=== PATIENT | male | born 1965 | race Caucasian/White ===

== ENCOUNTER 2022-09-28 07:55 | Outpatient (REF) | payer OTHER, SELFPAY ==
--- NOTE | ~2022-09-28 | US_ITS ---
EXAMINATION: US COMPLETE ABDOMEN WITH LIVER ELASTOGRAPHY CLINICAL INFORMATION: Fatty liver. COMPARISON: None available. TECHNIQUE: Real-time imaging of the abdominal viscera. Noninvasive ultrasound liver fibrosis assessment is performed using Morris ElastPQ point quantification shear wave elastography (2D-SWE) with a C5-2 MHz transducer. Multiple elastography samples are obtained. FINDINGS: PANCREAS: Normal. The visualized pancreatic head and body are normal in appearance. The remainder of the pancreas is obscured from visualization by the overlying bowel gas. ABDOMINAL AORTA: The proximal segment is largely obscured by overlapping bowel gas. The middle, and distal aortic segments are normal in caliber. INFERIOR VENA CAVA: Visualized portions are normal. LIVER: The liver demonstrates normal size, contour and generally increased echogenicity. No focal lesion or intrahepatic biliary duct dilatation. The right lobe measures 16.7 cm in length. The left lobe measures 13.2 cm in length. Portal flow is towards the liver (hepatopetal). Shear wave liver elastography median stiffness is 2.03 m/s (reference: normal median stiffness is 1.3 m/s or less). IQR/median stiffness to assess sampling precision is 0.05 (reference: good quality data set is IQR/median stiffness of 0.15 or less). GALLBLADDER: Normal. The gallbladder is physiologically distended without evidence of stones, sludge, polyps, wall thickening or pericholecystic fluid. COMMON BILE DUCT: Normal in caliber measuring 0.5 cm in diameter. RIGHT KIDNEY: At the upper pole, a 3.9 x 2.6 x 2.6 cm mildly complex cyst is seen, with fine, partial septations. This shows no mural nodularity or associated color Doppler flow. At the lower pole, a 1.5 cm maximal diameter benign, simple cyst is seen, for which no imaging follow-up is recommended. No hydronephrosis. No renal calculi or focal parenchymal lesions. The kidney measures 12.0 cm in maximum dimension. LEFT KIDNEY: At the upper pole, a 1.9 cm in diameter benign, simple cyst is seen. The interpolar aspect, a 2.9 cm maximal diameter benign, simple cyst is seen. There are persistent lobulations. No hydronephrosis. The upper pole, a 5 mm nonobstructing calculus is seen, with twinkle artifact. There are no solid parenchymal lesions. The kidney measures 9.7 cm in maximum dimension. SPLEEN: Normal. The spleen measures 12.4 cm in maximum dimension. FREE FLUID: None. US/US abdomen comp w elastography IMPRESSION: 1. There is generalized increase in hepatic echotexture, consistent with fatty infiltration or hepatocellular disease. Please correlate clinically. No focal hepatic mass or intrahepatic biliary dilatation is seen. 2. Liver elastography: Measurements are suggestive of compensated advanced chronic liver disease but need further test for confirmation. 3. There is a 5 mm nonobstructing left renal calculus. No right renal calculus is seen. No hydronephrosis is noted bilaterally. 4. A 3.9 cm mildly complex right renal upper pole cyst is seen, and there are further benign, simple bilateral renal cysts. If relevant to patient management, the mildly complex cyst could be more fully evaluated with contrast enhanced CT or MRI (renal mass protocol). REFERENCE: Society of Radiologists in Ultrasound Liver Stiffness Thresholds (2020): LIVER STIFFNESS THRESHOLDS: *Liver Stiffness equal or less than 1.3 m/s: High probability of being normal. *Liver Stiffness less than 1.7 m/s: In the absence of other known clinical signs, rules out compensated advanced chronic liver disease. *Liver Stiffness 1.7-2.1 m/s: Suggestive of compensated advanced chronic liver disease but need further test for confirmation. *Liver Stiffness over 2.1 m/s: Rules in compensated advanced chronic liver disease. *Liver Stiffness over 2.4 m/s: Suggestive of clinically significant portal hypertension. QUALITY OF DATA SET: *IQR/Median value equal or less than 0.15 implies a quality data set. *IQR/Median value over 0.15 implies a poor quality data set. SIGNIFICANT CHANGE FROM PRIOR EXAM: Significant change if liver stiffness measurement is 10% or greater from prior exam. OTHER CONSIDERATIONS: The stage of liver fibrosis may be overestimated in the setting of acute hepatitis, liver inflammation, elevated liver function tests, hepatic vascular congestion, obstructive cholestasis, non-fasting state, and infiltrative diseases such as amyloidosis and lymphoma. In some patients with NAFLD, the liver stiffness thresholds for compensated advanced chronic liver disease may be lower. In causes other than viral hepatitis and NAFLD, liver stiffness thresholds are not well established.
[2022-09-28 08:07] LABS: MANUAL DIFF FLAG NO
[2022-09-28 08:25] LABS: Basophils Absolute Auto 0.1 X10*3/uL (0.0-0.2); Basophils Percent Auto 1.2 % (0-2); Eosinophils Absolute Auto 0.2 X10*3/uL (0.0-0.4); Eosinophils Percent Auto 3.5 % (0-4); Hematocrit 46.1 % (42.0-52.0); Hemoglobin 15.6 g/dl (14.0-18.0); Imm Gran Abs Auto 0.01 X10*3/uL (0.00-0.03); Imm Gran Pct Auto 0.2 % (0.0-0.4); Lymphocytes Absolute Auto 0.9 X10*3/uL (1.2-4.9); Lymphocytes Percent Auto 16.3 % (20-40); Mean Corpuscular HGB Conc 33.8 g/dl (31.0-36.0); Mean Corpuscular Hemoglobin 32.2 pg (27.0-33.0); Mean Corpuscular Volume 95.1 fL (80.0-98.0); Mean Platelet Volume 8.8 fL (9.4-12.4); Monocytes Absolute Auto 0.5 X10*3/uL (0.1-1.2); Monocytes Percent Auto 8.8 % (2-11); Platelet Count 197 X10*3/uL (160-400); Red Blood Count 4.85 X10*6/uL (4.60-5.80); Red Cell Distribution Width 12.6 % (11.0-16.0); White Blood Count 5.7 X10*3/uL (4.8-10.8)
[2022-09-28 08:33] LABS: Prothrombin Time 11.4 SEC (10.0-13.1)
[2022-09-28 08:58] LABS: Alanine Aminotransferase 40 U/L (0-40); Alkaline Phosphatase 96 U/L (39-117); Aspartate Amino Transferase 40 U/L (5-37); Bilirubin Direct 0.3 mg/dL (0.0-0.5); Bilirubin Total 1.1 mg/dL (0.0-1.0); Total Protein 7.4 g/dL (6.5-8.0)
[2022-10-02 14:03] LABS: Alpha Fetoprotein 5.6 ng/mL (<6.1)
[2022-10-04 00:24] LABS: FIB-ALT 33 U/L (9-46); FIB-Alpha-2-Macroglobulin 196 mg/dL (106-279); FIB-Apolipoprotein A1 208 mg/dL (94-176); FIB-GGT 88 U/L (3-85); FIB-Haptoglobin 85 mg/dL (43-212); FIB-Total Bilirubin 0.8 mg/dL (0.2-1.2); Liver Fibrosis Score 0.32; Liver Fibrosis Stage F1-F2; Nec Inflam Act Grade A0-A1; Nec Inflam Act Score 0.17
== END 2022-09-28 07:56 | disposition home or self-care (01) ==
LOC: HO.US 07:55
PROVIDERS: PCP Internal Medicine; Visit Provider Internal Medicine
DX: K76.0 Fatty (change of) liver, not elsewhere classified (principal)
CPT/HCPCS: 36415; 76705; 76981; 80076; 81596; 82105; 85025; 85610

== ENCOUNTER 2022-11-17 07:49 | Day surgery (SDC) | payer OTHER, SELFPAY ==
--- NOTE | 2022-11-16 14:21 | HO.ANESPROP2 ---
Documented by User: Irene Harris NP 11/16/22 14:22 HPI - Anesthesia Eval Consult details Narrative: 57yo M for Colonoscopy [facility] Past Medical History Medical History (Updated 11/16/22 @ 12:53 by Kaylyn Law RN) Epiploic appendagitis Fatty liver H/O flexible sigmoidoscopy Hx of urethral stricture Pericarditis Surgical History Surgical History (Updated 11/16/22 @ 12:53 by Kaylyn Law RN) H/O colonoscopy H/O esophagogastroduodenoscopy Hx of appendectomy Hx of cholecystectomy Social History Social History Patient Tobacco Use Status: Former Tobacco user Quit Date: 1997 Tobacco use type: Cigar Use of substances other than those prescribed or required for medical reasons: No Are you DNR?: No Advance Directives: No Advance Directives Information Provided: Yes Meds Allergies Allergy/AdvReac Type Severity Reaction Status Date / Time indomethacin [From INDOCIN] Allergy Mild UNKNOWN Unverified 03/18/20 15:12 moxifloxacin [From AVELOX] Allergy Mild UNKNOWN Unverified 03/18/20 15:12 Home Medications Medication Instructions Recorded Confirmed Last Taken Type Centrum Silver 11/16/22 11/16/22 Unknown History Vitamin C 11/16/22 Unknown History ursodiol 500 mg tablet 500 mg PO BID 11/16/22 11/16/22 Unknown History valacyclovir 500 mg tablet 500 mg PO DAILY 11/16/22 11/16/22 Unknown History Exam Exam Date and Time: November 16, 2022 1421 Assessment and Plan Assessment Anesthesia Assessment: Chart Reviewed Documented by User: Franchesca Cardoza MD 11/17/22 10:46 [facility] Past Medical History Medical History (Updated 11/16/22 @ 12:53 by Kaylyn Law RN) Epiploic appendagitis Fatty liver H/O flexible sigmoidoscopy Hx of urethral stricture Pericarditis Surgical History Surgical History (Updated 11/16/22 @ 12:53 by Kaylyn Ronchi, RN) H/O colonoscopy H/O esophagogastroduodenoscopy Hx of appendectomy Hx of cholecystectomy Social History Social History Patient Tobacco Use Status: Former Tobacco user Quit Date: 1997 Tobacco use type: Cigar Use of substances other than those prescribed or required for medical reasons: No Are you DNR?: No Advance Directives: No Advance Directives Information Provided: Yes Meds Allergies Allergy/AdvReac Type Severity Reaction Status Date / Time indomethacin [From INDOCIN] Allergy Mild UNKNOWN Unverified 03/18/20 15:12 moxifloxacin [From AVELOX] Allergy Mild UNKNOWN Unverified 03/18/20 15:12 Home Medications Medication Instructions Recorded Confirmed Last Taken Type Centrum Silver 11/16/22 11/16/22 Unknown History Vitamin C 11/16/22 Unknown History ursodiol 500 mg tablet 500 mg PO BID 11/16/22 11/16/22 Unknown History valacyclovir 500 mg tablet 500 mg PO DAILY 11/16/22 11/16/22 Unknown History Exam Airway Mallampati Class: II TM Dist: >3cm Neck ROM: Full Loose/Missing/Broken Teeth: No Heart: rr Lungs: cta
--- OUTSIDE RECORDS SUMMARY | 2022-11-17 07:50 | XMS_ITS | Continuity of Care Document ---
Author Name Unknown Organization [facility] [place] Address [address] [place] [address]- Care Team Providers Care Utility Gelatin Maker Name Role Phone Carlo Fountain MD Primary Care Physician [place] [facility] [place] 08/25/21 [facility] Adult [address] [place] [address]- Encounter Diagnosis Rib contusion(Discharge Diagnosis) - 08/18/21 Attending Physician: Carlo Fountain MD Allergies, Adverse Reactions, Alerts Substance Reaction Severity Status Indocin stomach pain Active Avelox delerium Active Immunizations Given and Recorded Vaccine Date Status Refusal Reason SARS-CoV-2 mRNA ([id number]) vax 1 08/18/21 Given SARS-CoV-2 (COVID-19) mRNA BNT-162b2 vac 11/01/20 Recorded SARS-CoV-2 (COVID-19) mRNA BNT-162b2 vac 10/11/20 Recorded hepatitis B adult vaccine 10/25/15 Given Hepatitis A Adult Vaccine 10/25/15 Given tetanus/diphtheria/pertussis, acel(Tdap) 2 10/28/13 Given influenza virus vaccine, inactivated 3 07/09/13 Gi denita Not Given Vaccine Date Status Refusal Reason pneumococcal 23-valent vaccine 10/23/13 Not Given Patient Refuses 1Result Comment: [facility]-[id number] 2Admin Note: declines 3Admin Note: pt declines Medications Centrum Silver By Mouth, Daily, 0 Refills, Maintenance, 10/09/13 7:31:17 Start Date: 10/09/13 Status: Ordered cyclobenzaprine 10 mg oral tablet 10 mg, 1, tablet, By Mouth, 2 times a day, # 20 tablet, Refills 0, Tot. Refills 0, Maintenance, 08/18/21 13:53:00 EST, Route to Pharmacy Electronically, [facility]/pharmacy #[id number], Partial fill upon patient request if the prescription is for a schedule II opi... Start Date: 08/18/21 Status: Ordered Flonase 1 sprays, Daily, 0 Refills, Maintenance, 09/26/17 15:15:11 EDT Start Date: 09/26/17 Status: Ordered nabumetone 500 mg oral tablet 1 tablet = 500 mg, By Mouth, 2 times a day, with food, # 10 tablet, 0 Refills, Maintenance, 04/15/21 14:06:00 EDT, Tablet, [facility]/pharmacy #[id number], 173, cm, 04/15/21 13:49:00 EDT, Height Start Date: 04/15/21 Stop Date: 04/20/21 Status: Ordered Prilosec OTC = 20 mg, By Mouth, Daily, 0 Refills, Maintenance, 07/05/20 13:08:00 EST, Partial fill upon patient request if the prescription is for a schedule II opioid drug. Start Date: 07/05/20 Status: Ordered Joycelyn Forte By Mouth, 0 Refills Start Date: 03/31/09 Stop Date: 04/30/09 Status: Ordered valACYclovir 500 mg oral tablet 1, tablet, By Mouth, Daily, # 30 tablet, Refills 2, Tot. Refills 2, Maintenance, 05/30/21 11:33:00 EST, Route to Pharmacy Electronically, [facility]/pharmacy #[id number], 173, cm, 04/15/21 13:49:00 EDT, Height Start Date: 05/30/21 Status: Ordered Vitamin B Complex oral tablet, extended release 1 tablet, By Mouth, Daily, 0 Refills, Maintenance, 05/12/19 14:19:44 EST Start Date: 05/12/19 Status: Ordered Vitamin C 1000 mg oral tablet 1 tablet = 1,000 mg, By Mouth, Daily, 0 Refills, Maintenance, 09/21/16 14:10:37 Start Date: 09/21/16 Status: Ordered Problem List Condition Effective Dates Status Health Status Inform ant Adenomatous polyp of colon 2 017 due 2021(Confirmed) 1, 2 Active Body mass index 30+ - obesity(Confirmed) Active Blood pressure elevated with out history of HTN(Confirmed) 07/05/20 Active Fatty liverFIB 4;1.101 2019( Confirmed) 3, 4, 5, 6 Active GERD (gastroesophageal reflu x disease) egd 1997(Confirmed) 07/05/20 Active H/O urethral stricture(Confirmed) 7 Active HSV-1 infection chronic valtrex(Confirmed) 8 Active History of COVID-20 jul 2021(Confirmed) Active Macrocytosis without anemia(Confirmed) Active Microscopic hematuria(Confir med) 9, 10, 11 Active Obese class II(Confirmed) Active Obstructive sleep apnea AHI 8.6(Confirmed) 02/28/19 Active 1tubular adenoma 2DR ish 3neg sid 4Negative hep A, B, and C normal iron 5biopsy [address] deng 7uregthroplasty 2008 8oral 9neg eval 10Being evaluated by urology 11workup Diagnosis Diagnosis Type Effective Dates Health Status Cl inical Service Informant Rib contusion Discharge Diagnosis 08/18/21 Procedures Procedure Date Related Diagnosis Body Site Status Plain X-ray lumbar spine no Fx 08/15/21 Completed Vital Signs Most recent to oldest [Reference Range]: 1 2 Height 173 cm (08/18/21 1:46 PM) 173 cm (08/18/21 1:29 PM) Weight 108.8 kg (08/18/21 1:29 PM) Oxygen Saturation [94-100 %] 97 % (08/18/21 1:29 PM) Pulse Rate [55-90 bpm] 94 bpm *H* (08/18/21 1:29 PM) Body Mass Index [18.5-24.99] 36.35 *>HHI* (08/18/21 1:29 PM) Blood Pressure [90-138/55-84 mm Hg] 126/ 82mm Hg (08/18/21 1:46 PM) 145/84mm Hg *H* (08/18/21 1:29 PM) Respiratory Rate [16-30 br/min] 16 br/mi n (08/18/21 1:29 PM) Temperature [96.8-100.4 DegF] 98.2 DegF (08/18/21 1:29 PM) Mode of Delivery (Oxygen) Room air (08/18/21 1:29 PM) Blood pressure sites Arm, left (08/18/21 1:46 PM) Arm, left (08/18/21 1:29 PM) Temperature Route Oral (08/18/21 1:29 PM) Weight Obtained Via Standing scale (08/18/21 1:29 PM) Social History Social History Type Response Smoking Status Former smoker; Numbe r of years: 10; Total pack years: 5; Started at age: 12; Stopped at age: 22; entered on: 10/17/13 Sex Male
--- OUTSIDE RECORDS SUMMARY | 2022-11-17 07:50 | XMS_ITS | Continuity of Care Document ---
Author Name Unknown Organization [facility] [place] Address [address] [place] [address]- Care Team Providers Care Right Of Way Worker Name Role Phone Carlo Fountain MD Primary Care Physician Encounter [facility] [place] Date(s): 08/29/21 - 09/05/21 [facility] Adult [address] [place] [address]- Encounter Diagnosis Physical exam(Discharge Diagnosis) - 07/05/21 GERD (gastroesophageal reflux disease) egd 1997(Discharge Diagnosis) - 07/05/21 Obstructive sleep apnea AHI 8.6(Discharge Diagnosis) - 07/05/21 Macrocytosis without anemia(Discharge Diagnosis) - 07/05/21 Fatty liverFIB 4;1.101 2019(Discharge Diagnosis) - 07/05/21 HSV-1 infection chronic valtrex(Discharge Diagnosis) - 07/05/21 H/O urethral stricture(Discharge Diagnosis) - 07/05/21 Microscopic hematuria(Discharge Diagnosis) - 07/05/21 Rib pain(Discharge Diagnosis) - 08/25/21 Plantar fasciitis(Discharge Diagnosis) - 08/29/21 History of COVID-20 jul 2021(Discharge Diagnosis) - 08/29/21 Obese class II(Discharge Diagnosis) - 08/29/21 Adenomatous polyp of colon 2017 due 2021(Discharge Diagnosis) - 08/29/21 Attending Physician: Carlo Fountain MD Allergies, Adverse Reactions, Alerts Substance Reaction Severity Status Indocin stomach pain Active Avelox delerium Active Immunizations Given and Recorded Vaccine Date Status Refusal Reason SARS-CoV-2 mRNA ([id number]) vax 1 08/18/21 Given SARS-CoV-2 (COVID-19) mRNA BNT-162b2 vac 11/01/20 Recorded SARS-CoV-2 (COVID-19) mRNA BNT-162b2 vac 10/11/20 Recorded hepatitis B adult vaccine 10/25/15 Given Hepatitis A Adult Vaccine 10/25/15 Given tetanus/diphtheria/pertussis, acel(Tdap) 2 10/28/13 Given influenza virus vaccine, inactivated 3 07/09/13 Gi denita Not Given Vaccine Date Status Refusal Reason pneumococcal 23-valent vaccine 10/23/13 Not Given Patient Refuses 1Result Comment: [facility]-[id number] 2Admin Note: declines 3Admin Note: pt declines Medications Centrum Silver By Mouth, Daily, 0 Refills, Maintenance, 10/09/13 7:31:17 Start Date: 10/09/13 Status: Ordered Flonase 1 sprays, Daily, 0 Refills, Maintenance, 09/26/17 15:15:11 EDT Start Date: 09/26/17 Status: Ordered Prilosec OTC = 20 mg, [...] Mouth, Daily, # 30 tablet, Refills 2, Route to Pharmacy Electronically[id number], 173, cm, 08/29/21 14:14:00 EST, Height Start Date: 09/01/21 Status: Ordered Vitamin B Complex oral tablet, [...] Obstructive sleep apnea AHI 8.6(Confirmed) 02/28/19 Active Plantar fasciitis(Confirmed) 08/29/21 Active 1tubular adenoma 2DR deng 3neg sid 4Negative hep A, B, and C normal iron 5biopsy [address] deng 7uregthroplasty 2008 8oral 9neg eval 10Being evaluated by urology 11workup Diagnosis Diagnosis Type Effective Dates Health Status Clinical Service Informant Physical exam Discharge Diagnosis 07/05/21 GERD (gastroesophageal reflux disease) egd 1997 Discharge Diagnosis 07/05/21 Obstructive sleep apnea AHI 8.6 Discharge Diagnosis 07/05/21 Macrocytosis without anemia Discharge Diagnosis 07/05/21 Fatty liverFIB 4;1.101 2019 Discharge Diagnosis 07/05/21 HSV-1 infection chronic valtrex Discharge Diagnosis 07/05/21 H/O urethral stricture Discharge Diagnosis 07/05/21 Microscopic hematuria Discharge Diagnosis 07/05/21 Rib pain Discharge Diagnosis 08/25/21 Plantar fasciitis Discharge Diagnosis 08/29/21 History of COVID-20 jul 2021 Discharge Diagnosis 08/29/21 Obese class II Discharge Diagnosis 08/29/21 Adenomatous polyp of colon 2016 due 2021 Discharge Diagnosis 08/29/21 Vital Signs Most recent to oldest [Reference Range]: 1 2 Height 173 cm (08/29/21 2:14 PM) 173 cm (08/29/21 1:40 PM) Weight 107.4 kg (08/29/21 1:40 PM) Oxygen Saturation [94-100 %] 98 % (08/29/21 1:40 PM) Pulse Rate [55-90 bpm] 106 bpm *H* (08/29/21 1:40 PM) Body Mass Index [18.5-24.99] 35.88 *>HHI* (08/29/21 1:40 PM) Blood Pressure [90-138/55-84 mm Hg] 122/ 86mm Hg (08/29/21 2:14 PM) 154/91mm Hg *H* (08/29/21 1:40 PM) Respiratory Rate [16-30 br/min] 16 br/mi n (08/29/21 1:40 PM) Temperature [96.8-100.4 DegF] 98.4 DegF (08/29/21 1:40 PM) Mode of Delivery (Oxygen) Room air (08/29/21 1:40 PM) Blood pressure sites Arm, left (08/29/21 2:14 PM) Arm, left (08/29/21 1:40 PM) Temperature Route Oral (08/29/21 1:40 PM) Weight Obtained Via Standing scale (08/29/21 1:40 PM) Social History Social History Type Response Smoking Status Former smoker; Numbe r of years: 10; Total pack years: 5; Started at age: 12; Stopped at age: 22; entered on: 10/17/13 Sex Male
--- OUTSIDE RECORDS SUMMARY | 2022-11-17 07:50 | XMS_ITS | Continuity of Care Document ---
Author Name Unknown Organization [facility] [place] Address [address] [place] [address]- Care Team Providers Care Contractor [employer]reshing Name Role Phone Александр BURNETT, Carlo Alvarez Primary Care Physician [phone] [place] [facility] [place]): 12/25/19 - 01/01/20 [facility] Adult [address] [place] [address]- [place] Encounter Diagnosis Obstructive sleep apnea AHI 8.6(Discharge Diagnosis) - 12/25/19 Attending Physician: María JIMENEZ, Fallon Quiroz Allergies, Adverse Reactions, Alerts Substance Reaction Severity Status Indocin stomach pain Active Avelox delerium Active Immunizations Given and Recorded Vaccine Date Status Refusal Reason hepatitis B adult vaccine 10/25/15 Given Hepatitis A Adult Vaccine 10/25/15 Given tetanus/diphtheria/pertussis, acel(Tdap) 1 10/28/13 Given influenza virus vaccine, inactivated 2 07/09/13 Gi denita Not Given Vaccine Date Status Refusal Reason pneumococcal 23-valent vaccine 10/23/13 Not Given Patient Refuses 1Admin Note: declines 2Admin Note: pt declines Medications Centrum Silver By Mouth, Daily, 0 Refills, Maintenance, 10/09/13 7:31:17 Start Date: 10/09/13 Status: Ordered Flonase 1 sprays, Daily, 0 Refills, Maintenance, 09/26/17 15:15:11 EDT Start Date: 09/26/17 Status: Ordered Joycelyn Forte By Mouth, 0 Refills Start Date: 03/31/09 Stop Date: 04/30/09 Status: Ordered Valtrex 500 mg oral tablet 500 mg, 1, tablet, By Mouth, Daily, needs sooner ov than jul, # 90 tablet, Refills 0, Tot. Refills 0, Maintenance, 12/26/19 11:35:00 EDT, Route to Pharmacy Electronically, [facility]/pharmacy #[id number], 173, cm, 08/11/19 15:30:00 EST, Height Start Date: 12/26/19 Status: Ordered Vitamin B Complex oral tablet, extended release 1 tablet, By Mouth, Daily, 0 Refills, Maintenance, 05/12/19 14:19:44 EST Start Date: 05/12/19 Status: Ordered Vitamin C 1000 mg oral tablet 1 tablet = 1,000 mg, By Mouth, Daily, 0 Refills, Maintenance, 09/21/16 14:10:37 Start Date: 09/21/16 Status: Ordered Problem List Condition Effective Dates Status Health Status Inform ant Rarely uses seat belts(Confirmed) 1 Active Body mass index 30+ - obesity(Confirmed) Active Fatty liver(Confirmed) 2, 3, 4, 5 Active H/O urethral stricture(Confirmed) 6 Active Herpes Simplex(Confirmed) 7 Active Microscopic hematuria(Confir med) 8, 9, 10 Active Obstructive sleep apnea AHI 8.6(Confirmed) 02/28/19 Active Colon polyps(Confirmed) 11, 12 Active 1counsel use ;risk ,paralysis 2neg sid 3Negative hep A, B, and C normal iron 4biopsy [address] deng 6uregthroplasty 2008 7oral 8neg eval 9Being evaluated by urology 10workup 11tubular adenoma 12DR ish Diagnosis Diagnosis Type Effective Dates Health Status Clinical Service Informant Obstructive sleep apnea AHI 8.6 Discharge Diagnosis 12/25/19 Social History Social History Type Response Smoking Status Former smoker; Numbe r of years: 10; Total pack years: 5; Started at age: 12; Stopped at age: 22; entered on: 10/17/13 Sex
--- OUTSIDE RECORDS SUMMARY | 2022-11-17 07:50 | XMS_ITS | Continuity of Care Document ---
Author Name Unknown Organization [facility] Address [address] [place] [address]- Care Team Providers Care Showroom Sales Consultant Name Role Phone Jeremy Majano DO Primary Care Physician Encounter [facility] Date(s): 10/02/22 - 11/01/22 [facility] Adult [address] [place] [address]- Allergies, Adverse Reactions, Alerts Substance Reaction Severity Status Indocin stomach pain Active Avelox delerium Active Immunizations Given and Recorded Vaccine Date Status Refusal Reason SARS-CoV-2 mRNA ([id number]-smbf-acugz) vax 1 08/18/21 Given SARS-CoV-2 (COVID-19) mRNA BNT-162b2 vac 11/01/20 Recorded SARS-CoV-2 (COVID-19) mRNA BNT-162b2 vac 10/11/20 Recorded hepatitis B adult vaccine 10/25/15 Given Hepatitis A Adult Vaccine 10/25/15 Given tetanus/diphtheria/pertussis, acel(Tdap) 2 10/28/13 Given influenza virus vaccine, inactivated 3 07/09/13 Gi denita Not Given Vaccine Date Status Refusal Reason pneumococcal 23-valent vaccine 10/23/13 Not Given Patient Refuses 1Result Comment: [facility]-[id number] 2Admin Note: declines 3Admin Note: pt declines Medications Centrum Silver By Mouth, Daily, 0 Refills, Maintenance, 10/09/13 7:31:17 Start Date: 10/09/13 Status: Ordered Flonase 1 sprays, Daily, 0 Refills, Maintenance, 09/26/17 15:15:11 EDT Start Date: 09/26/17 Status: Ordered Joycelyn Forte By Mouth, 0 Refills Start Date: 03/31/09 Stop Date: 04/30/09 Status: Ordered valACYclovir 500 mg oral tablet 1, tablet, By Mouth, Daily, for 30 days, # 30 tablet, Refills 3, Tot. Refills 3, Physician Stop 12/08/22 6:44:00 EDT, 08/10/22 6:44:00 EST, Route to Pharmacy Electronically, [facility]/pharmacy #[id number], 173, cm, 06/23/22 9:37:00 EST, Height Start Date: 08/10/22 Stop Date: 12/08/22 Status: Ordered Vitamin B Complex oral tablet, extended release 1 tablet, By Mouth, Daily, 0 Refills, Maintenance, 05/12/19 14:19:44 EST Start Date: 05/12/19 Status: Ordered Vitamin C 1000 mg oral tablet 1 tablet = 1,000 mg, By Mouth, Daily, 0 Refills, Maintenance, 09/21/16 14:10:37 Start Date: 09/21/16 Status: Ordered Problem List Condition Confirmation Course Effective Dates Status H ealth Status Informant Adenomatous polyp of colon 2017 due 2021 1, 2 Confirmed Active Body mass index 30+ - obesity Confirmed Active Blood pressure elevated without history of HTN Confirmed 07/05/20 Active Fatty liverFIB 4;1.101 2019 3, 4, 5, 6 Confirmed Active GERD (gastroesophageal reflux disease) egd 1997 Confirmed 07/05/20 Active H/O urethral stricture 7 Confirmed Active HSV-1 infection chronic valtrex 8 Confirmed Active History of COVID-20 jul 2021 Confirmed Active Hypophosphatemia nephrology 2021 Confirmed 10/06/21 Active Macrocytosis without anemia Confirmed Active Microscopic hematuria chronic/nephrology 2021 9, 10, 11 Confirmed Active Obstructive sleep apnea AHI 8.6 Confirmed 02/28/19 Active Plantar fasciitis Confirmed 08/29/21 Active Severe obesity (BMI 35.0-39.9) with comorbidity Confirmed Active 1tubular adenoma 2DR ish 3neg sid 4Negative hep A, B, and C normal iron 5biopsy [address] deng 7uregthroplasty 2008 8oral 9neg eval 10Being evaluated by urology 11workup Social History Social History Type Response Smoking Status Former smoker; Numbe r of years: 10; Total pack years: 5; Started at age: 12; Stopped at age: 22; entered on: 10/17/13 Sex Male Patient Care team information Care Team Personnel Name: Jeremy Majano DO Position: [facility] Primary Care Physician Member Role: PCP Address: Address: [address] [place] [address] [place] [address]- Care Team Related Persons Name: DAYNE DUQUE Address: home [address] [place] [id number]
--- OUTSIDE RECORDS SUMMARY | 2022-11-17 07:50 | XMS_ITS | Continuity of Care Document ---
Author Name Unknown Organization [facility] Address [address] [place] [address]- Care Team Providers Care Upholstery Tech Name Role Phone Александр BURNETT, Carlo Alvarez Primary Care Physician [phone] Encounter [facility] Date(s): 05/30/21 - 06/29/21 [facility] [address] [place] [address]- Allergies, Adverse Reactions, Alerts Substance Reaction Severity Status Indocin stomach pain Active Avelox delerium Active Immunizations Given and Recorded Vaccine Date Status Refusal Reason SARS-CoV-2 (COVID-19) mRNA BNT-162b2 vac 11/01/20 Recorded [...] 0 Refills, Maintenance, 04/15/21 14:06:00 EDT, Tablet, [facility]/pharmacy #[id number], 173, cm, 04/15/21 13:49:00 EDT, Height [...] 05/30/21 11:33:00 EST, Route to Pharmacy Electronically, [facility]/pharmacy #[id number], 173, cm, 04/15/21 13:49:00 EDT, Height [...] Effective Dates Status Health Status Inform ant Body mass index 30+ - obesity(Confirmed) Active Blood pressure elevated with out history of HTN(Confirmed) 07/05/20 Active Fatty liverFIB 4;1.101 2019( Confirmed) 1, 2, 3, 4 Active GERD (gastroesophageal reflu x disease)(Confirmed) 07/05/20 Active H/O urethral stricture(Confirmed) 5 Active HSV-1 infection chronic valtrex(Confirmed) 6 Active Macrocytosis without anemia(Confirmed) Active Microscopic hematuria(Confir med) 7, 8, 9 Active Obstructive sleep apnea AHI 8.6(Confirmed) 02/28/19 Active Palpitation refer holter(Confirmed) 07/05/20 Active Colon polyps(Confirmed) 10, 11 Active 1neg sid 2Negative hep A, B, and C normal iron 3biopsy [address] deng 5uregthroplasty 2009 6oral 7neg eval 8Being evaluated by urology 9workup 10tubular adenoma 11DR ish Social History Social History Type Response Smoking Status Former smoker; Numbe r of years: 10; Total pack years: 5; Started at age: 12; Stopped at age: 22; entered on: 10/17/13 Sex
--- OUTSIDE RECORDS SUMMARY | 2022-11-17 07:50 | XMS_ITS | Continuity of Care Document ---
Author Name Unknown Organization [facility] Address [address] [place] [address]- Care Team Providers Care Hoisting Engine Operator Name Role Phone Александр BURNETT, Carlo Alvarez Primary Care Physician Un available Encounter [facility] Date(s): 06/23/22 - 07/23/22 [facility] [address] [place] [address]- Allergies, Adverse Reactions, Alerts Substance Reaction Severity Status Indocin stomach pain Active Avelox delerium Active Immunizations Given and Recorded Vaccine Date Status Refusal Reason SARS-CoV-2 mRNA (tbmdbfb-eejv-azvus) vax 1 08/18/21 Given SARS-CoV-2 (COVID-19) mRNA BNT-162b2 vac 11/01/20 Recorded SARS-CoV-2 (COVID-19) mRNA BNT-162b2 vac 10/11/20 Recorded hepatitis B adult vaccine 10/25/15 Given Hepatitis A Adult Vaccine 10/25/15 Given tetanus/diphtheria/pertussis, acel(Tdap) 2 10/28/13 Given influenza virus vaccine, inactivated 3 07/09/13 Gi denita Not Given Vaccine Date Status Refusal Reason pneumococcal 23-valent vaccine 10/23/13 Not Given Patient Refuses 1Result Comment: [facility]-[id number] 2Admin Note: declines 3Admin Note: pt declines [...] tablet, Refills 2, Route to Pharmacy Electronically, [id number], 173, cm, 08/29/21 14:14:00 EST, Height Start [...] chronic/nephrology 2021 9, 10, 11 Confirmed Active Obese class I Confirmed Active Obstructive sleep apnea AHI 8.6 Confirmed 02/28/19 Active Plantar fasciitis Confirmed 08/29/21 Active 1tubular adenoma 2DR deng 3neg [...] Male Patient Care team information Care Team Related Persons Name: DAYNE DUQUE Address: home [address] [place] [id number]
--- OUTSIDE RECORDS SUMMARY | 2022-11-17 07:51 | XMS_ITS | Continuity of Care Document ---
Author Name Unknown Organization [facility] Address [address] [place] [address]- Care Team Providers Care Gunite Nozzle Operator Name Role Phone Александр BURNETT, Carlo Alvarez Primary Care Physician [place] [facility] [place] 09[place]06[place]21 - 10/06/21 [facility] Adult [address] [place] [address]- Allergies, Adverse Reactions, Alerts Substance Reaction Severity Status Indocin stomach pain Active Avelox delerium Active Immunizations Given and Recorded Vaccine Date Status Refusal Reason SARS-CoV-2 mRNA (ghlgpqp-zgsk-iqane) vax 1 08/18/21 Given SARS-CoV-2 (COVID-19) mRNA [...] Refuses 1Result Comment: [facility]-[id number] 2Admin Note: declines 3Admin Note: pt declines [...] tablet, Refills 2, Route to Pharmacy Electronically, [facility] 668[facility], 173, cm, 08/29/21 14:14:00 EST, Height Start [...] Plantar fasciitis(Confirmed) 08/29/21 Active 1tubular adenoma 2DR ish 3neg sid [...]
--- OUTSIDE RECORDS SUMMARY | 2022-11-17 07:51 | XMS_ITS | Continuity of Care Document ---
Author Name Unknown Organization [facility] Address [address] [place] [address]- Care Team Providers Care Station Installer Name Role Phone Александр BURNETT, Carlo Alvarez Primary Care Physician [phone] Encounter [facility] Date(s): 04/15/21 - 05/15/21 [facility] Adult [address] [place] [address]- Attending Physician: Admneha, Onofre8 Admitting Physician: Admtr, Onofre8 Referring Physician: Admtr, Ar8 Allergies, Adverse Reactions, Alerts Substance Reaction Severity [...] 0 Refills, Maintenance, 04/15/21 14:06:00 EDT, Tablet, [facility]/pharmacy #[id number], 173, cm, 04/15/21 13:49:00 EDT, Height [...] tablet, Refills 2, Route to Pharmacy Electronically, [facility], 173, cm, 12/13/20 7:45:00 EDT, Height Start Date: 03/03/21 Status: Ordered Vitamin B Complex oral tablet, [...] history of HTN(Confirmed) 07/05/20 Active Fatty liverFIB 4;1.2019( Confirmed) 1, 2, 3, 4 Active GERD [...] B, and C normal iron 3biopsy [address] deng 5uregthroplasty 2009 6oral 7neg eval 8Being evaluated by urology 9workup 10tubular adenoma 11DR deng Procedures Procedure Date Related Diagnosis Body Site Status cadiac catheterization 1 10/09/13 Completed Electrocardiogram, routine E CG with at least 12 leads; with interpretation and report 2 10/09/13 Completed Radiologic examination, ches t, 2 views, frontal and lateral; 3 10/08/13 Completed Colonoscopy, flexible, proxi mal to splenic flexure; diagnostic, with or without collection of specimen(s) by brushing or washing, with or without colon decompression (separate procedure) 4 07/02/06 Completed Biopsy of liver, needle; percutaneous 5 07/02/98 Completed Ultrasound, abdominal, real time with image documentation; complete 6 Completed 1Diagnostic Summary The coronary arteries are angiographically normal. Clinical history and EKG findings are consistent with acute dino-pericarditis. 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 Suggest repeat and biomarkers. Confirmed by CEASAR HAYES MD ([id number]) on 10/09/2013 3:32:21 3FINDINGS: Lungs: The lungs are clear. There is no evidence of a pneumothorax or pleural effusion. Cardiomediastinal silhouette:The cardiomediastinal silhouette is normal. 4nad [id number] ;liver biopsy consistent fatty liver 6need report,consistent fatty liver Social History Social History Type Response Smoking Status Former smoker; Numbe r of years: 10; Total pack years: 5; Started at age: 12; Stopped at age: 22; entered on: 10/17/13 Sex
--- OUTSIDE RECORDS SUMMARY | 2022-11-17 07:51 | XMS_ITS | Continuity of Care Document ---
Author Name Unknown Organization [facility] Address [address] [place] [address]- Care Team Providers Care Nutrition Aides Teacher Name Role Phone Александр BURNETT, Carlo Alvarez Primary Care Physician Encounter [facility] Date(s): 09/12/21 - 10/12/21 [facility] Adult [address] [place] [address]- Allergies, Adverse Reactions, Alerts Substance Reaction Severity Status Indocin stomach pain Active Avelox delerium Active Immunizations Given and Recorded Vaccine Date Status Refusal Reason SARS-CoV-2 mRNA (gwszybf-fgvv-kicix) vax 1 08/18/21 Given SARS-CoV-2 (COVID-19) mRNA BNT-162b2 vac 11/01/20 Recorded SARS-CoV-2 (COVID-19) mRNA BNT-162b2 vac 10/11/20 Recorded hepatitis B adult vaccine 10/25/15 Given Hepatitis A Adult Vaccine 10/25/15 Given tetanus/diphtheria/pertussis, acel(Tdap) 2 10/28/13 Given influenza virus vaccine, inactivated 3 07/09/13 Gi denita Not Given Vaccine Date Status Refusal Reason pneumococcal 23-valent vaccine 10/23/13 Not Given Patient Refuses 1Result Comment: [facility]-[id number] 2Admin Note: declines 3Admin Note: pt declines [...] tablet, Refills 2, Route to Pharmacy Electronically, [facility], 173, cm, 08/29/21 14:14:00 EST, Height Start [...] Active History of COVID-20 jul 2021(Confirmed) Active Hypophosphatemia(Confirmed) 10/06/21 Active Macrocytosis without anemia(Confirmed) Active Microscopic hematuria(Confir [...]
--- OUTSIDE RECORDS SUMMARY | 2022-11-17 07:51 | XMS_ITS | Continuity of Care Document ---
Author Name Unknown Organization [facility] Address [address] [place] [address]- Care Team Providers Care Athletics Teacher Name Role Phone Александр BURNETT, Carlo Alvarez Primary Care Physician [place] [facility] [place] 12/13/20 - 01/12/21 [facility] [address] [place] [address]- Attending Physician: Gadiel Purvis Admitting Physician: AdmtrGadiel Referring Physician: Admtr, Ar8 Allergies, Adverse Reactions, [...] # 30 tablet, Refills 2, Tot. Refills 0, Acute, 12/07/20 7:46:00 EDT, Route to Pharmacy Electronically, [facility] 802[facility], 173, cm, 07/05/20 13:45:00 EST, Height Start Date: 12/07/20 Status: Ordered Vitamin B Complex oral tablet, [...] iron 3biopsy [address] deng 5uregthroplasty 2008 6oral 7neg eval 8Being evaluated by urology [...] 320 ms QTC Calculation(Bezet): 395 ms P [place]: 39 degrees R [place]: 7 degrees T [place]: 30 degrees Normal sinus rhythm Moderate voltage criteria for LVH, may be normal variant Inferior infarct , age undetermined Abnormal ECG When compared with ECG of 07-APR-2009 11:00, Inferior infarct is now Present ST elevation now present in Inferior leads ST elevation now present in Lateral leads 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 Suggest repeat and biomarkers. Confirmed by CEASAR HAYES MD ([id number]) on 10/09/2013 3:32:21 3FINDINGS: Lungs: The lungs are clear. There is no evidence of a pneumothorax or pleural effusion. Cardiomediastinal silhouette:The cardiomediastinal silhouette is normal. 4nad [address] ;liver biopsy consistent fatty liver 6need report,consistent fatty liver Social History Social History Type Response Smoking Status Former smoker; Numbe r of years: 10; Total pack years: 5; Started at age: 12; Stopped at age: 22; entered on: 10/17/13 Sex
--- OUTSIDE RECORDS SUMMARY | 2022-11-17 07:51 | XMS_ITS | Continuity of Care Document ---
Author Name Unknown Organization [facility] Address [address] [place] [address]- Care Team Providers Care Scheduling Representative Name Role Phone Александр BURNETT, Carlo Alvarez Primary Care Physician [phone] Encounter [facility] Date(s): 12/13/20 - 12/20/20 [facility] Adult [address] [place] [address]- Encounter Diagnosis Nasal congestion(Discharge Diagnosis) - 12/13/20 Attending Physician: Chikis Mcdonnell NP Referring Physician: Carlo Fountain MD Allergies, Adverse Reactions, [...] 12/07/20 7:46:00 EDT, Route to Pharmacy Electronically, [facility], 173, cm, 07/05/20 13:45:00 EST, Height Start [...] of HTN(Confirmed) 07/05/20 Active Fatty liverFIB 4;1.101 2020( Confirmed) 1, 2, 3, 4 Active GERD [...] by urology 9workup 10tubular adenoma 11DR ish Diagnosis Diagnosis Type Effective Dates Health Status Clinical Service Informant Nasal congestion Discharge Diagnosis 12/13/20 Vital Signs Most recent to oldest [Reference Range]: 1 Height 173 cm (12/13/20 7:45 AM) Weight 109.4 kg (12/13/20 7:45 AM) Oxygen Saturation [94-100 %] 98 % (12/13/20 7:45 AM) Pulse Rate [55-90 bpm] 86 bpm (12/13/20 7:45 AM) Body Mass Index [18.5-24.99] 36.55 *>HHI* (12/13/20 7:45 AM) Blood Pressure [90-138/55-84 mm Hg] 134/ 84mm Hg (12/13/20 7:45 AM) Temperature [96.8-100.4 DegF] 98.3 DegF (12/13/20 7:45 AM) Blood pressure sites Arm, left (12/13/20 7:45 AM) Social History Social History Type Response Smoking Status Former smoker; Numbe r of years: 10; Total pack years: 5; Started at age: 12; Stopped at age: 22; entered on: 10/17/13 Sex
--- OUTSIDE RECORDS SUMMARY | 2022-11-17 07:51 | XMS_ITS | Continuity of Care Document ---
Author Name Unknown Organization [facility] Address [address] [place] [address]- Care Team Providers Care Crew Person Name Role Phone Александр BURNETT, Carlo Alvarez Primary Care Physician [phone] [id number] Date(s): 06/11/20 - 07/11/20 [facility] Adult [address] [place] [address]- Allergies, Adverse Reactions, Alerts Substance Reaction Severity [...] tablet, Refills 2, Tot. Refills 2, Maintenance, 06/16/20 8:09:00 EST, Route to Pharmacy Electronically, [facility]/pharmacy #[id number], 173, cm, 08/11/19 15:30:00 EST, Height Start Date: 06/16/20 Status: Ordered Vitamin B Complex oral tablet, [...]
--- OUTSIDE RECORDS SUMMARY | 2022-11-17 07:51 | XMS_ITS | Continuity of Care Document ---
Author Name Unknown Organization [facility] Address [address] [place] [address]- Care Team Providers Care Space Controller Name Role Phone Александр BURNETT, Carlo Alvarez Primary Care Physician [phone] [place] [facility] [place](s): 12/29/21 - 01/28/22 [facility] Adult [address] [place] [address]- Allergies, Adverse Reactions, Alerts Substance Reaction Severity Status Indocin stomach pain Active Avelox delerium Active Immunizations Given and Recorded Vaccine Date Status Refusal Reason SARS-CoV-2 mRNA (tiflxhb-atoc-aizyk) vax 1 08/18/21 Given SARS-CoV-2 (COVID-19) mRNA BNT-162b2 vac 11/01/20 Recorded SARS-CoV-2 (COVID-19) mRNA BNT-162b2 vac 10/11/20 Recorded hepatitis B adult vaccine 10/25/15 Given Hepatitis A Adult Vaccine 10/25/15 Given tetanus/diphtheria/pertussis, acel(Tdap) 2 10/28/13 Given influenza virus vaccine, inactivated 3 07/09/13 Gi denita Not Given Vaccine Date Status Refusal Reason pneumococcal 23-valent vaccine 10/23/13 Not Given Patient Refuses 1Result Comment: [facility]-[id number] 2Admin Note: declines 3Admin Note: pt declines [...] tablet, Refills 2, Route to Pharmacy Electronically, [facility], 173, cm, 08/29/21 14:14:00 EST, Height Start [...] Active History of COVID-20 jul 2021(Confirmed) Active Hypophosphatemia nephrology 2021(Confirmed) 10/06/21 Active Macrocytosis without anemia(Confirmed) Active Microscopic [...]
--- OUTSIDE RECORDS SUMMARY | 2022-11-17 07:51 | XMS_ITS | Continuity of Care Document ---
Author Name Unknown Organization [facility] Address [address] [place] [address]- Care Team Providers Care Director Cardiovascular Name Role Phone Александр BURNETT, Carlo Alvarez Primary Care Physician En[facility] [place] Date(s): 12/29/19 - 01/28/20 [facility] Adult [address] [place] [address]- [facility] Allergies, Adverse Reactions, Alerts Substance Reaction Severity [...] 12/26/19 11:35:00 EDT, Route to Pharmacy Electronically, [facility]/pharmacy #[id number], 173, cm, 08/11/19 15:30:00 EST, Height Start [...] iron 4biopsy [address] deng 6uregthroplasty 2009 7oral 8neg eval 9Being evaluated by urology 10workup 11tubular adenoma 12DR ish Social History Social History Type Response Smoking Status Former smoker; Numbe r of years: 10; Total pack years: 5; Started at age: 12; Stopped at age: 22; entered on: 10/17/13 Sex
--- OUTSIDE RECORDS SUMMARY | 2022-11-17 07:51 | XMS_ITS | Continuity of Care Document ---
Author Name Unknown Organization [facility] Address [address] [place] [address]- Care Team Providers Care Gaming Table Operator Name Role Phone Александр BURNETT, Carlo Alvarez Primary Care Physician Un available Encounter [facility] [place] Date(s): 06/23/22 - 06/30/22 [facility] Adult [address] [place] [address]- Encounter Diagnosis Cellulitis of nasal tip(Discharge Diagnosis) - 06/23/22 Attending Physician: Not on Staff, Attending MD Allergies, Adverse Reactions, Alerts Substance Reaction Severity Status Indocin stomach pain Active Avelox delerium Active Immunizations Given and Recorded Vaccine Date Status Refusal Reason SARS-CoV-2 mRNA (hczjjsn-wppy-kawcu) vax 1 08/18/21 Given SARS-CoV-2 (COVID-19) mRNA BNT-162b2 vac 11/01/20 Recorded SARS-CoV-2 (COVID-19) mRNA BNT-162b2 vac 10/11/20 Recorded hepatitis B adult vaccine 10/25/15 Given Hepatitis A Adult Vaccine 10/25/15 Given tetanus/diphtheria/pertussis, acel(Tdap) 2 10/28/13 Given influenza virus vaccine, inactivated 3 07/09/13 Gi denita Not Given Vaccine Date Status Refusal Reason pneumococcal 23-valent vaccine 10/23/13 Not Given Patient Refuses 1Result Comment: [facility]-[id number] 2Admin Note: declines 3Admin Note: pt declines [...] tablet, Refills 2, Route to Pharmacy Electronically, [id number], 173, cm, 08/29/21 14:14:00 EST, Height Start [...] fasciitis Confirmed 08/29/21 Active 1tubular adenoma 2DR ish 3neg sid 4Negative hep A, B, and C normal iron 5biopsy [address] deng 7uregthroplasty 2008 8oral 9neg eval 10Being evaluated by urology 11workup Diagnosis Diagnosis Type Effective Dates Health Status Clinical Service Informant Cellulitis of nasal tip Discharge Diagnosis 06/23/22 Vital Signs Most recent to oldest [Reference Range]: 1 Height 173 cm (06/23/22 9:37 AM) Weight 104 kg (06/23/22 9:37 AM) Body Mass Index [18.5-24.99 kg/m2] 34.75 kg/m2 *>HHI* (06/23/22 9:37 AM) Weight Obtained Via Patient/family state d (06/23/22 9:37 AM) Social History Social History Type Response Smoking Status Former smoker; Martha r of years: 10; Total pack years: 5; Started at age: 12; Stopped at age: 22; entered on: 10/17/13 Sex Male Note * Franchesca Arredondo: PERFORM, SIGN, VERIFY Event Display: Patient Education/Instruction Authored Date: [id number] [facility] *BMP So [facility] Barrios Clinical Summary Name ALVERTO DUQUE Age 57 Years 1965 PCP PCP Phone Visit Date 06/23/2022 09:40:00 Additional Instructions: Scheduled Appointments?? Future Appointments ?No Future Appointments Scheduled Follow-Up Instructions ?? Diagnosis Abscess, furuncle and carbuncle of nose Medications: Please continue your medications until treatment is completed or stopped by your provider. Discuss any questions related to medications with your provider. New Medications [id number], [address], [place] [id number], [phone] Cephalexin (cephalexin monohydrate 500 mg oral capsule) 1 capsule Oral 4 times a day for 7 Days. Refills: 0. Next Dose: Mupirocin Topical (mupirocin 2% topical ointment) 1 tao Topically 3 times a day for 7 Days. Refills: 0. Next Dose: Medications to Continue with No Changes These medications were not printed or sent to your pharmacy Ascorbic Acid (Vitamin C 1000 mg oral tablet) 1 tab(s) Oral Daily. Next Dose: Fluticasone Nasal (Flonase) 1 spray(s) Daily. Next Dose: Multivitamin (Vitamin B Complex oral tablet, extended release) 1 tab(s) Oral Daily. Next Dose: Multivitamin With Minerals (Centrum Silver) Oral Daily. Next Dose: Ursodiol (Joycelyn Forte) Oral. Next Dose: ValACYclovir (valACYclovir 500 mg oral tablet) 1 tab(s) Oral Daily. Refills: 2. Next Dose: Allergy Info:?? Avelox; Indocin Medications Given This Visit Future Orders ?No future orders Vital Signs Height 173 cm Weight 104 kg BMI 34.75 kg/m2 Blood Pressure / Temperature Pulse Rate Respiratory Rate 02 Sat Mode of Delivery / You can now view a summary of your hospital visit from the comfort of your home through a free online portal called [employer]. [employer] is a website that allows you to securely view your medical information including discharge summary, medications and follow-up visits. ??You can alsosend a secure electronic message to your doctor???s office to request appointments, renew medications or just ask a question. You can enroll at [email or web address] or register during your next office visit. Disclaimer:?? The information provided is of a general nature and is intended to be used in conjunction with the recommendations and advice of your health care practitioner. ??Every effort has been made to ensure that the information provided is accurate and complete at the time it is provided to you however, as your needs change, or, as new ??information becomes available, different or additional instructions may be required. If you have questions, please consult with your primary care provider or pharmacist, as appropriate. ??This information is not intended to serve as substitution for assessment and evaluation by a qualified health care provider. If you do not have a primary care provider, you may find a [facility] provider by calling [facility] [employer] at [phone]. For information about the plan of care including goals and instructions for your diagnosis, please see the patient education orders section of this document. Patient Education Materials?? The content of this educational material or handout may have been modified, supplemented, or adapted from its original content and format to support your individualized medical care. Patient Care team information Care Team Related Persons Name: DAYNE DUQUE Address: [address] [address]
--- OUTSIDE RECORDS SUMMARY | 2022-11-17 07:51 | XMS_ITS | Continuity of Care Document ---
Author Name Unknown Organization [facility] Address [address] [place] [address]- Care Team Providers Care Wrapper Layer And Examiner Soft Work Name Role Phone Александр BURNETT, Carlo Alvarez Primary Care Physician Encounter [facility] [place] Date(s): 01/06/22 - 02/05/22 [facility] Adult [address] [place] [address]- Allergies, Adverse Reactions, Alerts Substance Reaction Severity Status Indocin stomach pain Active Avelox delerium Active Immunizations Given and Recorded Vaccine Date Status Refusal Reason SARS-CoV-2 mRNA (fxnamji-ernz-bdvca) vax 1 08/18/21 Given SARS-CoV-2 (COVID-19) mRNA BNT-162b2 vac 11/01/20 Recorded SARS-CoV-2 (COVID-19) mRNA BNT-162b2 vac 10/11/20 Recorded hepatitis B adult vaccine 10/25/15 Given Hepatitis A Adult Vaccine 10/25/15 Given tetanus/diphtheria/pertussis, acel(Tdap) 2 10/28/13 Given influenza virus vaccine, inactivated 3 07/09/13 Gi denita Not Given Vaccine Date Status Refusal Reason pneumococcal 23-valent vaccine 10/23/13 Not Given Patient Refuses 1Result Comment: [facility]-[id number] 2Admin Note: declines 3Admin Note: pt declines [...] tablet, Refills 2, Route to Pharmacy Electronically, [id number], 173, cm, 08/29/21 14:14:00 EST, Height Start [...]
--- OUTSIDE RECORDS SUMMARY | 2022-11-17 07:51 | XMS_ITS | Continuity of Care Document ---
Author Name Unknown Organization [facility] Address [address] [place] [address]- Care Team Providers Care Roll Examiner Name Role Phone Александр BURNETT, Carlo Alvarez Primary Care Physician En[place] [facility] [place] Date(s): 09/06/21 - 10/06/21 [facility] Adult [address] [place] [address]- Allergies, Adverse Reactions, Alerts Substance Reaction Severity Status Indocin stomach pain Active Avelox delerium Active Immunizations Given and Recorded Vaccine Date Status Refusal Reason SARS-CoV-2 mRNA (uogzixs-rjvj-vcwei) vax 1 08/18/21 Given SARS-CoV-2 (COVID-19) mRNA BNT-162b2 vac 11/01/20 Recorded SARS-CoV-2 (COVID-19) mRNA BNT-162b2 vac 10/11/20 Recorded hepatitis B adult vaccine 10/25/15 Given Hepatitis A Adult Vaccine 10/25/15 Given tetanus/diphtheria/pertussis, acel(Tdap) 2 10/28/13 Given influenza virus vaccine, inactivated 3 07/09/13 Gi denita Not Given Vaccine Date Status Refusal Reason pneumococcal 23-valent vaccine 10/23/13 Not Given Patient Refuses 1Result Comment: [facility]-[id number] 2Admin Note: declines 3Admin Note: pt declines [...] tablet, Refills 2, Route to Pharmacy Electronically, [facility] 416[facility], 173, cm, 08/29/21 14:14:00 EST, Height Start [...]
--- OUTSIDE RECORDS SUMMARY | 2022-11-17 07:51 | XMS_ITS | Continuity of Care Document ---
Author Name Unknown Organization [facility] Address [address] [place] [address]- Care Team Providers Care Nitrocellulose Maker Name Role Phone Александр BURNETT, Carlo Alvarez Primary Care Physician Encounter [facility] [place] Date(s): 12/25/19 - 01/24/20 [facility] Adult [address] [place] [address]- [facility] Attending Physician: Gadiel Purvis Admitting Physician: Gadiel Purvis Referring Physician: AdmtrGadiel Allergies, Adverse Reactions, Alerts Substance Reaction Severity [...] 12/26/19 11:35:00 EDT, Route to Pharmacy Electronically, [id number], 173, cm, 08/11/19 15:30:00 EST, Height [...] by urology 10workup 11tubular adenoma 12DR ish Procedures Procedure Date Related Diagnosis Body Site [...] 320 ms QTC Calculation(Bezet): 395 ms P [place]: 39 degrees R [place]: 7 degrees T [place]: 30 degrees Normal sinus rhythm Moderate voltage criteria for LVH, may be normal variant Inferior infarct , age undetermined Abnormal ECG When compared with ECG of 07-APR-2009 11:00, Inferior infarct is now Present ST elevation now present in Inferior leads ST elevation now present in Lateral leads DEVELOPMENT TEAM LEAD- early repolarizatrion vs injury current. Suggest repeat and biomarkers. Confirmed by CEASAR HAYES MD ([id number]) on 10/09/2013 3:32:21 3FINDINGS: Lungs: The lungs are clear. There is no evidence of a pneumothorax or pleural effusion. Cardiomediastinal silhouette:The cardiomediastinal silhouette is normal. 4nad [id number] ;liver biopsy consistent fatty liver 6need report,consistent fatty liver Social History Social History Type Response Smoking Status Former smoker; Numbe r of years: 10; Total pack years: 5; Started at age: 12; Stopped at age: 22; entered on: 10/17/13 Sex
--- OUTSIDE RECORDS SUMMARY | 2022-11-17 07:51 | XMS_ITS | Continuity of Care Document ---
Author Name Unknown Organization [facility] Address [address] [place] [address]- Care Team Providers Care Bicycle Fitter Name Role Phone Александр BURNETT, Carlo Alvarez Primary Care Physician Encounter [facility] Date(s): 08/23/21 - 09/22/21 [facility] Adult [address] [place] [address]- Allergies, Adverse Reactions, Alerts Substance Reaction Severity Status Indocin stomach pain Active Avelox delerium Active Immunizations Given and Recorded Vaccine Date Status Refusal Reason SARS-CoV-2 mRNA (ncufoos-cvqf-brfgk) vax 1 08/18/21 Given SARS-CoV-2 (COVID-19) mRNA BNT-162b2 vac 11/01/20 Recorded SARS-CoV-2 (COVID-19) mRNA BNT-162b2 vac 10/11/20 Recorded hepatitis B adult vaccine 10/25/15 Given Hepatitis A Adult Vaccine 10/25/15 Given tetanus/diphtheria/pertussis, acel(Tdap) 2 10/28/13 Given influenza virus vaccine, inactivated 3 07/09/13 Gi denita Not Given Vaccine Date Status Refusal Reason pneumococcal 23-valent vaccine 10/23/13 Not Given Patient Refuses 1Result Comment: [facility]-[id number] 2Admin Note: declines 3Admin Note: pt declines [...] tablet, Refills 2, Route to Pharmacy Electronically, [facility], 173, cm, 08/29/21 14:14:00 EST, Height Start [...]
--- OUTSIDE RECORDS SUMMARY | 2022-11-17 07:51 | XMS_ITS | Continuity of Care Document ---
Author Name Unknown Organization [facility] [place] Address [address] [place] [address]- Care Team Providers Care Boiler House Supervisor Name Role Phone Александр BURNETT, Carlo Alvarez Primary Care Physician [phone] Encounter [facility] [id number] Date(s): 05/03/20 - 05/10/20 [facility] Adult [address] [place] [address]- Encounter Diagnosis Acute URI(Discharge Diagnosis) - 05/03/20 Herpes Simplex(Discharge Diagnosis) - 05/03/20 Attending Physician: Myke Sheehan MD Referring Physician: María JIMENEZ, Fallon Quiroz Allergies, Adverse [...] Note: declines 2Admin Note: pt declines Medications Augmentin 875 mg-125 mg oral tablet 1 tablet, By Mouth, Every 12 hours, for 5 days, # 10 tablet, 0 Refills, Acute 05/12/20 11:57:00 EST, 05/07/20 11:57:00 EST, [facility]t, [id number], 173, cm, 08/11/19 15:30:00 EST, Height Start Date: 05/07/20 Stop Date: 05/12/20 Status: Ordered Centrum Silver By Mouth, Daily, 0 Refills, Maintenance, 10/09/13 7:31:17 Start Date: 10/09/13 Status: Ordered Flonase 1 sprays, Daily, 0 Refills, Maintenance, 09/26/17 15:15:11 EDT Start Date: 09/26/17 Status: Ordered Joycelyn Forte By Mouth, 0 Refills Start Date: 03/31/09 Stop Date: 04/30/09 Status: Ordered valACYclovir 500 mg oral tablet 1, tablet, By Mouth, Daily, NEEDS TO MAKE OFFICE VISIT., # 30 tablet, Refills 2, Tot. Refills 0, Acute, 03/16/20 17:44:00 EDT, Route to Pharmacy Electronically, [id number], 173, cm, 08/11/19 15:30:00 EST, Height Start Date: 03/16/20 Status: Ordered Vitamin B Complex oral tablet, [...] Dates Health Status Cl inical Service Informant Acute URI Discharge Diagnosis 05/03/20 Herpes Simplex Discharge Diagnosis 05/03/20 Social History Social History Type Response Smoking Status Former smoker; Numbe r of years: 10; Total pack years: 5; Started at age: 12; Stopped at age: 22; entered on: 10/17/13 Sex
--- OUTSIDE RECORDS SUMMARY | 2022-11-17 07:51 | XMS_ITS | Continuity of Care Document ---
Author Name Unknown Organization [facility] [place] Address [address] [place] [address]- Care Team Providers Care Barrel Bridge Assembler Name Role Phone Александр BURNETT, Carlo Alvarez Primary Care Physician [phone] Encounter [facility] [place] Date(s): 09/05/21 - 10/05/21 [facility] Adult [address] [place] [address]- Allergies, Adverse Reactions, Alerts Substance Reaction Severity Status Indocin stomach pain Active Avelox delerium Active Immunizations Given and Recorded Vaccine Date Status Refusal Reason SARS-CoV-2 mRNA (edaaych-uvby-fdani) vax 1 08/18/21 Given SARS-CoV-2 (COVID-19) mRNA BNT-162b2 vac 11/01/20 Recorded SARS-CoV-2 (COVID-19) mRNA BNT-162b2 vac 10/11/20 Recorded hepatitis B adult vaccine 10/25/15 Given Hepatitis A Adult Vaccine 10/25/15 Given tetanus/diphtheria/pertussis, acel(Tdap) 2 10/28/13 Given influenza virus vaccine, inactivated 3 07/09/13 Gi denita Not Given Vaccine Date Status Refusal Reason pneumococcal 23-valent vaccine 10/23/13 Not Given Patient Refuses 1Result Comment: [facility]-[id number] 2Admin Note: declines 3Admin Note: pt declines [...] tablet, Refills 2, Route to Pharmacy Electronically, [facility], 173, cm, 08/29/21 14:14:00 EST, Height Start [...]
--- OUTSIDE RECORDS SUMMARY | 2022-11-17 07:51 | XMS_ITS | Continuity of Care Document ---
Author Name Unknown Organization [facility] Address [address] [place] [address]- Care Team Providers Care Billboard Poster Name Role Phone Александр BURNETT, Carlo Alvarez Primary Care Physician [place] [facility] [place] 09/07/21 - 10/07/21 [facility] Adult [address] [place] [address]- Allergies, Adverse Reactions, Alerts Substance Reaction Severity Status Indocin stomach pain Active Avelox delerium Active Immunizations Given and Recorded Vaccine Date Status Refusal Reason SARS-CoV-2 mRNA (yvhvtpx-tugl-pwfgp) vax 1 08/18/21 Given SARS-CoV-2 (COVID-19) mRNA BNT-162b2 vac 11/01/20 Recorded SARS-CoV-2 (COVID-19) mRNA BNT-162b2 vac 10/11/20 Recorded hepatitis B adult vaccine 10/25/15 Given Hepatitis A Adult Vaccine 10/25/15 Given tetanus/diphtheria/pertussis, acel(Tdap) 2 10/28/13 Given influenza virus vaccine, inactivated 3 07/09/13 Gi denita Not Given Vaccine Date Status Refusal Reason pneumococcal 23-valent vaccine 10/23/13 Not Given Patient Refuses 1Result Comment: [facility]-[id number] 2Admin Note: declines 3Admin Note: pt declines [...] tablet, Refills 2, Route to Pharmacy Electronically, [facility] 8[facility], 173, cm, 08/29/21 14:14:00 EST, Height Start [...]
--- OUTSIDE RECORDS SUMMARY | 2022-11-17 07:51 | XMS_ITS | Continuity of Care Document ---
Author Name Unknown Organization [facility] Address [address] [place] [address]- Care Team Providers Care Assistant Elementary Teacher Name Role Phone Александр BURNETT, Carlo Alvarez Primary Care Physician [phone] Encounter [facility] [place] Date(s): 12/08/21 - 01/07/22 [facility] Adult [address] [place] [address]- Allergies, Adverse Reactions, Alerts Substance Reaction Severity Status Indocin stomach pain Active Avelox delerium Active Immunizations Given and Recorded Vaccine Date Status Refusal Reason SARS-CoV-2 mRNA (jusdqjz-nfim-xnvst) vax 1 08/18/21 Given SARS-CoV-2 (COVID-19) mRNA BNT-162b2 vac 11/01/20 Recorded SARS-CoV-2 (COVID-19) mRNA BNT-162b2 vac 10/11/20 Recorded hepatitis B adult vaccine 10/25/15 Given Hepatitis A Adult Vaccine 10/25/15 Given tetanus/diphtheria/pertussis, acel(Tdap) 2 10/28/13 Given influenza virus vaccine, inactivated 3 07/09/13 Gi denita Not Given Vaccine Date Status Refusal Reason pneumococcal 23-valent vaccine 10/23/13 Not Given Patient Refuses 1Result Comment: [facility][NOTE 3]-[id number] 2Admin Note: declines 3Admin Note: pt declines [...] tablet, Refills 2, Route to Pharmacy Electronically, [facility], 173, cm, 08/29/21 14:14:00 EST, Height Start [...] History of COVID-20 jul 2021(Confirmed) Active Hypophosphatemia refer nephr ology November 2021(Confirmed) 10/06/21 Active Macrocytosis without anemia(Confirmed) Active [...]
--- OUTSIDE RECORDS SUMMARY | 2022-11-17 07:51 | XMS_ITS | Continuity of Care Document ---
Author Name Unknown Organization [facility] Address [address] [place] [address]- Care Team Providers Care Kiln Operator Name Role Phone Carlo Fountain MD Primary Care Physician [id number] Date(s): 07/31/19 - 11/28/19 [facility] Adult [address] [place] [address]- [facility] Attending Physician: Carlo Fountain MD Allergies, Adverse [...] 500 mg, 1, tablet, By Mouth, Daily, # 90 tablet, Refills 1, Tot. Refills 1, Maintenance, 06/05/19 13:03:33 EST, Route to Pharmacy Electronically, [id number], [facility]/pharmacy #[id number], 173, cm, 05/12/19 14:12:23 EST, Height Start Date: 06/05/19 Status: Ordered Vitamin B Complex oral tablet, [...]
--- OUTSIDE RECORDS SUMMARY | 2022-11-17 07:51 | XMS_ITS | Continuity of Care Document ---
Author Name Unknown Organization [facility] [place] Address [address] [place] [address]- Care Team Providers Care Microfilm Processor Name Role Phone Flip JIMENEZ, Odessa Rogers Primary Care Physician [phone] Encounter [facility] [place] Date(s): 08/31/22 - 09/30/22 [facility] Adult [address] [place] [address]- Attending Physician: Admtr, Ar8 Admitting Physician: Admtr, Ar8 Referring Physician: Admtr, Ar8 Allergies, Adverse Reactions, Alerts Substance Reaction Severity Status Indocin stomach pain Active Avelox delerium Active Immunizations Given and Recorded Vaccine Date Status Refusal Reason SARS-CoV-2 mRNA (nwsjsna-kyat-wreng) vax 1 08/18/21 Given SARS-CoV-2 (COVID-19) mRNA BNT-162b2 vac 11/01/20 Recorded SARS-CoV-2 (COVID-19) mRNA BNT-162b2 vac 10/11/20 Recorded hepatitis B adult vaccine 10/25/15 Given Hepatitis A Adult Vaccine 10/25/15 Given tetanus/diphtheria/pertussis, acel(Tdap) 2 10/28/13 Given influenza virus vaccine, inactivated 3 07/09/13 Gi denita Not Given Vaccine Date Status Refusal Reason pneumococcal 23-valent vaccine 10/23/13 Not Given Patient Refuses 1Result Comment: [facility]-[id number] 2Admin Note: declines 3Admin Note: pt declines [...] 08/10/22 6:44:00 EST, Route to Pharmacy Electronically, [facility]/pharmacy #[id number], 173, cm, 06/23/22 9:37:00 EST, Height [...] with comorbidity Confirmed Active 1tubular adenoma 2DR deng 3neg sid 4Negative hep A, B, and C normal iron 5biopsy [address] 6[address] deng 7uregthroplasty 2008 8oral 9neg eval 10Being evaluated by urology 11workup Procedures Procedure Date Related Diagnosis Body Site Status Ultrasound, retroperitonealr enal cysts small 03/14/22 Completed cadiac catheterization 1 10/09/13 Completed Electrocardiogram, routine [...] 320 ms QTC Calculation(Bezet): 395 ms P [place]: 39 degrees R [place]: 7 degrees T [place]: 30 degrees Normal sinus rhythm Moderate voltage criteria for LVH, may be normal variant Inferior infarct , age undetermined Abnormal ECG When compared with ECG of 07-APR-2009 11:00, Inferior infarct is now Present ST elevation now present in Inferior leads ST elevation now present in Lateral leads BOX CAR LOADER- early repolarizatrion vs injury current. Suggest repeat and biomarkers. Confirmed by CEASAR HAYES MD ([id number]) on 10/09/2013 3:32:21 3FINDINGS: Lungs: The lungs are clear. There is no evidence of a pneumothorax or pleural effusion. Cardiomediastinal silhouette:The cardiomediastinal silhouette is normal. 4nad [address] ;liver biopsy consistent fatty liver 6need report,consistent fatty liver Social History Social History Type Response Smoking Status Former smoker; Numbe r of years: 10; Total pack years: 5; Started at age: 12; Stopped at age: 22; entered on: 10/17/13 Sex Male EKG study * Event Display: EKG Authored Date: * Event Display: EKG Authored Date: Note * Event Display: Cardiology Office Note, Non-BH Authored Date: * Event Display: Non BH Lab Results Authored Date: * Event Display: Non BH Lab Results Authored Date: * Event Display: Non BH Lab Results Authored Date: Patient Care team information Care Team Personnel Name: Flip JIMENEZ, Odessa Rogers Position: S PCO Associate Professional Member Role: PCP Address: Address: [address] [place] [address]- Care Team Related Persons Name: DAYNE DUQUE Address: home [address] [place] [address]
--- OUTSIDE RECORDS SUMMARY | 2022-11-17 07:51 | XMS_ITS | Continuity of Care Document ---
Author Name Unknown Organization [facility] Address [address] [place] [address]- Care Team Providers Care Entry Level Management Name Role Phone Carlo Fountain MD Primary Care Physician [place] [facility] [place] 04/15/21 - 04/22/21 [facility] Adult [address] [place] [address]- Encounter Diagnosis Neck pain(Discharge Diagnosis) - 04/17/21 Attending Physician: Not on Staff, Attending MD Referring Physician: Carlo Fountain MD Allergies, Adverse [...] 0 Refills, Maintenance, 04/15/21 14:06:00 EDT, Tablet, [facility]/pharmacy #[id number], 173, cm, 04/15/21 13:49:00 EDT, [...] 2, Route to Pharmacy Electronically, [facility], 173, cm, 12/13/20 7:45:00 EDT, Height Start [...] Diagnosis Diagnosis Type Effective Dates Health Status Clini ramya Service Informant Neck pain Discharge Diagnosis 04/17/21 Vital Signs Most recent to oldest [Reference Range]: 1 Height 173 cm (04/15/21 1:49 PM) Weight 108.0 kg (04/15/21 1:49 PM) Oxygen Saturation [94-100 %] 97 % (04/15/21 1:49 PM) Pulse Rate [55-90 bpm] 69 bpm (04/15/21 1:49 PM) Body Mass Index [18.5-24.99] 36.09 *>HHI* (04/15/21 1:49 PM) Blood Pressure [90-138/55-84 mm Hg] 130/ 80mm Hg (04/15/21 1:49 PM) Temperature [96.8-100.4 DegF] 98.1 DegF (04/15/21 1:49 PM) Temperature Route Oral (04/15/21 1:49 PM) Social History Social History Type Response Smoking Status Former smoker; Numbe r of years: 10; Total pack years: 5; Started at age: 12; Stopped at age: 22; entered on: 10/17/13 Sex
--- OUTSIDE RECORDS SUMMARY | 2022-11-17 07:51 | XMS_ITS | Continuity of Care Document ---
Author Name Unknown Organization [facility] Address [address] [place] [address]- Care Team Providers Care Rotoprinter Name Role Phone Александр BURNETT, Carlo Alvarez Primary Care Physician Encounter [facility] [place] Date(s): 10/12/21 - 11/11/21 [facility] Adult [address] [place] [address]- Allergies, Adverse Reactions, Alerts Substance Reaction Severity Status Indocin stomach pain Active Avelox delerium Active Immunizations Given and Recorded Vaccine Date Status Refusal Reason SARS-CoV-2 mRNA (dvofygc-frbj-pwqpl) vax 1 08/18/21 Given SARS-CoV-2 (COVID-19) mRNA BNT-162b2 vac 11/01/20 Recorded SARS-CoV-2 (COVID-19) mRNA BNT-162b2 vac 10/11/20 Recorded hepatitis B adult vaccine 10/25/15 Given Hepatitis A Adult Vaccine 10/25/15 Given tetanus/diphtheria/pertussis, acel(Tdap) 2 10/28/13 Given influenza virus vaccine, inactivated 3 07/09/13 Gi denita Not Given Vaccine Date Status Refusal Reason pneumococcal 23-valent vaccine 10/23/13 Not Given Patient Refuses 1Result Comment: [facility]-[id number] 2Admin Note: declines 3Admin Note: pt declines [...] tablet, Refills 2, Route to Pharmacy Electronically, [id number], 173, cm, 08/29/21 14:14:00 EST, Height Start [...]
--- OUTSIDE RECORDS SUMMARY | 2022-11-17 07:51 | XMS_ITS | Continuity of Care Document ---
Author Name Unknown Organization [facility] Address [address] [place] [address]- Care Team Providers Care Etl Analyst Name Role Phone Flip JIMENEZ, Odessa Rogers Primary Care Physician Encounter [facility] [place] Date(s): 08/31/22 - 09/07/22 [facility] [address] [place] [address]- Encounter Diagnosis Hypophosphatemia nephrology 2021(Discharge Diagnosis) - 08/31/22 Back pain(Discharge Diagnosis) - 09/01/22 Abdominal pain in male(Discharge Diagnosis) - 09/01/22 Attending Physician: Not on Staff, Attending MD Allergies, Adverse Reactions, Alerts Substance Reaction Severity Status Indocin stomach pain Active Avelox delerium Active Immunizations Given and Recorded Vaccine Date Status Refusal Reason SARS-CoV-2 mRNA (wsyalem-ogzl-mkmzv) vax 1 08/18/21 Given SARS-CoV-2 (COVID-19) mRNA BNT-162b2 vac 11/01/20 Recorded SARS-CoV-2 (COVID-19) mRNA BNT-162b2 vac 10/11/20 Recorded hepatitis B adult vaccine 10/25/15 Given Hepatitis A Adult Vaccine 10/25/15 Given tetanus/diphtheria/pertussis, acel(Tdap) 2 10/28/13 Given influenza virus vaccine, inactivated 3 07/09/13 Gi denita Not Given Vaccine Date Status Refusal Reason pneumococcal 23-valent vaccine 10/23/13 Not Given Patient Refuses 1Result Comment: [facility]-[id number] 2Admin Note: declines 3Admin Note: pt declines [...] 08/10/22 6:44:00 EST, Route to Pharmacy Electronically, [facility]/pharmacy #[id number], 173, cm, 06/23/22 9:37:00 EST, [...] iron 5biopsy [address] deng 7uregthroplasty 2009 8oral 9neg eval 10Being evaluated by urology 11workup Diagnosis Diagnosis Type Effective Dates Health Status Clinical Service Informant Hypophosphatemia nephrology 2021 Discharge Diagnosis 08/31/22 Back pain Discharge Diagnosis 09/01/22 Abdominal pain in male Discharge Diagnosis 09/01/22 Vital Signs Most recent to oldest [Reference Range]: 1 Height 173 cm (08/31/22 10:09 AM) Weight 106.8 kg (08/31/22 10:09 AM) Oxygen Saturation [94-100 %] 98 % (08/31/22 10:09 AM) Pulse Rate [55-90 bpm] 86 bpm (08/31/22 10:09 AM) Body Mass Index [18.5-24.99 kg/m2] 35.68 kg/m2 *>HHI* (08/31/22 10:09 AM) Blood Pressure [90-138/55-84 mm Hg] 124/ 86mm Hg (08/31/22 10:09 AM) Blood pressure sites Arm, left (08/31/22 10:09 AM) Weight Obtained Via Standing scale (08/31/22 10:09 AM) Social History Social History Type Response Smoking Status Former smoker; Numbe r of years: 10; Total pack years: 5; Started at age: 12; Stopped at age: 22; entered on: 10/17/13 Sex Male Note * Noy Chang: PERFORM, SIGN, VERIFY Event Display: Patient Education/Instruction Authored Date: [id number] [facility] Clinical Summary Name ALVERTO DUQUE Age 57 Years 1965 PCP Odessa Castelan NP PCP Visit Date 08/31/2022 09:57:00 Additional Instructions: Scheduled Appointments?? Future Appointments ?No Future Appointments Scheduled Follow-Up Instructions ?? With: Address: When: Odessa Castelan NP [address] [place] [address] 08/31/2022 12:00 AM Comments: patient needs a f/u with Dr. Majano in october can book CPE Diagnosis Other disorders of phosphorus metabolism Medications: Please continue your medications until treatment is completed or stopped by your provider. Discuss any questions related to medications with your provider. Medications to Continue with No Changes These [...] 500 mg oral tablet) 1 tab(s) Oral Daily for 30 Days. Refills: 3. Next Dose: Allergy Info:?? Avelox; Indocin Medications Given This Visit Future Orders ?Phosphorus Level? Order Date:08/31/22?- Complete on or after?08/31/22 ?Magnesium Level? Order Date:08/31/22?- Complete on or after?08/31/22 ?Renal Panel? Order Date:08/31/22?- Complete on or after?08/31/22 Vital Signs Height 173 cm Weight 106.8 kg BMI 35.68 kg/m2 Blood Pressure 124 mm Hg/86 mm Hg Temperature Pulse Rate 86 bpm Respiratory Rate 02 Sat Mode of Delivery 98 %/ You can now view a summary of your hospital visit from the comfort of your home through a free online portal called Kanmu. Kanmu is a website that allows you to securely view your medical information including discharge summary, medications and follow-up visits. ??You can alsosend a secure electronic message to your doctor???s office to request appointments, renew medications or just ask a question. You can enroll at [email or web address] or register during your next office visit. [...] primary care provider, you may find a [facility] provider by calling [facility] at [phone]. For information about the plan of care including goals and instructions for your diagnosis, please see the patient education orders section of this document. Patient Education Materials?? The content of this educational material or handout may have been modified, supplemented, or adapted from its original content and format to support your individualized medical care. Patient Care team information Care Team Personnel Name: Flip JIMENEZ, Odessa Rogers Position: [facility] Associate Professional Member Role: PCP Address: Address: [address] [place] [address]- Care Team Related Persons Name: DAYNE DUQUE Address: [address] [address]
--- OUTSIDE RECORDS SUMMARY | 2022-11-17 07:51 | XMS_ITS | Continuity of Care Document ---
Author Name Unknown Organization [facility] Address [address] [place] [address]- Care Team Providers Care Roll Cutting Operator Name Role Phone Flip JIMENEZ, Odessa Rogers Primary Care Physician [place] [facility] [place](s): 09/01/22 - 10/01/22 [facility] Adult [address] [place] [address]- Allergies, Adverse Reactions, Alerts Substance Reaction Severity Status Indocin stomach pain Active Avelox delerium Active Immunizations Given and Recorded Vaccine Date Status Refusal Reason SARS-CoV-2 mRNA (uyrsxww-idzj-jnqrs) vax 1 08/18/21 Given SARS-CoV-2 (COVID-19) mRNA BNT-162b2 vac 11/01/20 Recorded SARS-CoV-2 (COVID-19) mRNA BNT-162b2 vac 10/11/20 Recorded hepatitis B adult vaccine 10/25/15 Given Hepatitis A Adult Vaccine 10/25/15 Given tetanus/diphtheria/pertussis, acel(Tdap) 2 10/28/13 Given influenza virus vaccine, inactivated 3 07/09/13 Gi denita Not Given Vaccine Date Status Refusal Reason pneumococcal 23-valent vaccine 10/23/13 Not Given Patient Refuses 1Result Comment: [facility]-[id number] 2Admin Note: declines 3Admin Note: pt declines [...] 08/10/22 6:44:00 EST, Route to Pharmacy Electronically, [facility]/pharmacy #[id number], 173, cm, 06/23/22 9:37:00 EST, Height [...] Associate Professional Member Role: PCP Address: Address: [address] [place] [address]- Care Team Related Persons Name: DAYNE DUQUE Address: [address] [place] [address]
--- OUTSIDE RECORDS SUMMARY | 2022-11-17 07:51 | XMS_ITS | Continuity of Care Document ---
Author Name Unknown Organization [facility] Address [address] [place] [address]- Care Team Providers Care Exchange Engineer Name Role Phone Александр BURNETT, Carlo Alvarez Primary [facility] Phys[id number]08/20 - 02/07/[address] [address]- [facility] Attending Physician: Gadiel Purvis Admitting Physician: AdmGadiel solomon Referring Physician: AdmtrGadiel Allergies, Adverse Reactions, Alerts [...] 12/26/19 11:35:00 EDT, Route to Pharmacy Electronically, [facility]/pharmacy #[id number], 173, cm, 08/11/19 15:30:00 EST, [...]
--- OUTSIDE RECORDS SUMMARY | 2022-11-17 07:51 | XMS_ITS | Continuity of Care Document ---
Author Name Unknown Organization [facility] Address [address] [place] [address]- Care Team Providers Care Field Application Engineer Name Role Phone Carlo Fountain MD Primary Care Physician Encounter [facility] [place] Date(s): 07/05/20 - 07/12/20 [facility] Adult [address] [place] [address]- Encounter Diagnosis Physical exam(Discharge Diagnosis) - 07/03/20 Obstructive sleep apnea AHI 8.6(Discharge Diagnosis) - 07/03/20 Colon polyps(Discharge Diagnosis) - 07/03/20 Fatty liver(Discharge Diagnosis) - 07/03/20 Macrocytosis without anemia(Discharge Diagnosis) - 07/03/20 BMI 36.0-36.9,adult(Discharge Diagnosis) - 07/05/20 GERD (gastroesophageal reflux disease)(Discharge Diagnosis) - 07/05/20 Blood pressure elevated without history of HTN(Discharge Diagnosis) - 07/05/20 Attending Physician: Carlo Fountain MD Allergies, Adverse [...] 06/16/20 8:09:00 EST, Route to Pharmacy Electronically, [facility]/pharmacy #[id number], 173, cm, 08/11/19 15:30:00 EST, Height [...] by urology 9workup 10tubular adenoma 11DR deng Diagnosis Diagnosis Type Effective Dates Health Status Clinical Service Informant Physical exam Discharge Diagnosis 07/03/20 Obstructive sleep apnea AHI 8.6 Discharge Diagnosis 07/03/20 Colon polyps Discharge Diagnosis 07/03/20 Fatty liver Discharge Diagnosis 07/03/20 Macrocytosis without anemia Discharge Diagnosis 07/03/20 BMI 36.0-36.9,adult Discharge Diagnosis 07/05/20 GERD (gastroesophageal reflux disease) Discharge Diagnosis 07/05/20 Blood pressure elevated without history of HTN Discharge Diagnosis 07/05/20 Procedures Procedure Date Related Diagnosis Body Site Status EKG 1 07/05/20 Completed [id number] Ventricular Rate: 98 BPM Atrial Rate: 98 BPM P-R Interval: 164 ms QRS Duration: 72 ms Q-T Interval: 332 ms QTC Calculation(Bazett): 423 ms P [place]: 46 degrees R [place]: 19 degrees T [place]: 65 degrees Normal sinus rhythm Minimal voltage criteria for LVH, may be normal variant Borderline ECG When compared with ECG of 22-OCT-2013 07:59, No significant change was found [place]: , ECG 12-Lead Please click on pdf link to open report Vital Signs Most recent to oldest [Reference Range]: 1 2 Height 173 cm (07/05/20 1:45 PM) 173 cm (07/05/20 1:06 PM) Weight 106.8 kg (07/05/20 1:06 PM) Oxygen Saturation [94-100 %] 98 % (07/05/20 1:06 PM) Pulse Rate [55-90 bpm] 110 bpm *H* (07/05/20 1:06 PM) Body Mass Index [18.5-24.99] 35.68 *>HHI* (07/05/20 1:06 PM) Blood Pressure [90-138/55-84 mm Hg] 130/ 80mm Hg (07/05/20 1:45 PM) 126/86mm Hg (07/05/20 1:06 PM) Respiratory Rate [16-30 br/min] 16 br/mi n (07/05/20 1:06 PM) Temperature [96.8-100.4 DegF] 99.0 DegF (07/05/20 1:06 PM) Blood pressure sites Arm, left (07/05/20 1:45 PM) Arm, left (1/4/21 1:06 PM) Temperature Route Oral (07/05/20 1:06 PM) Social History Social History Type Response Smoking Status Former smoker; Numbe r of years: 10; Total pack years: 5; Started at age: 12; Stopped at age: 22; entered on: 10/17/13 Sex
--- OUTSIDE RECORDS SUMMARY | 2022-11-17 07:51 | XMS_ITS | Continuity of Care Document ---
Author Name Unknown Organization [facility] Address [address] [place] [address]- Care Team Providers Care Bd Special Education Teacher Name Role Phone Александр BURNETT, Carlo Alvarez Primary Care Physician [place] [facility] [place] 07/14/20 [facility] Adult [address] [place] [address]- Allergies, Adverse Reactions, Alerts Substance Reaction Severity [...] 06/16/20 8:09:00 EST, Route to Pharmacy Electronically, [facility]/pharmacy #[id number], 173, cm, 08/11/19 15:30:00 [...]
--- OUTSIDE RECORDS SUMMARY | 2022-11-17 07:51 | XMS_ITS | Continuity of Care Document ---
Author Name Unknown Organization [facility] Address [address] [place] [address]- Care Team Providers Care Wheat Combine Driver Name Role Phone Александр BURNETT, Carlo Alvarez Primary Care Physician [place] [facility] [place](s[place] 08/23/21 - 09/22/21 [facility] Adult [address] [place] [address]- Allergies, Adverse Reactions, Alerts Substance Reaction Severity Status Indocin stomach pain Active Avelox delerium Active Immunizations Given and Recorded Vaccine Date Status Refusal Reason SARS-CoV-2 mRNA (tevtgsv-jlae-jjdat) vax 1 08/18/21 Given SARS-CoV-2 (COVID-19) mRNA BNT-162b2 vac 11/01/20 Recorded SARS-CoV-2 (COVID-19) mRNA BNT-162b2 vac 10/11/20 Recorded hepatitis B adult vaccine 10/25/15 Given Hepatitis A Adult Vaccine 10/25/15 Given tetanus/diphtheria/pertussis, acel(Tdap) 2 10/28/13 Given influenza virus vaccine, inactivated 3 07/09/13 Gi denita Not Given Vaccine Date Status Refusal Reason pneumococcal 23-valent vaccine 10/23/13 Not Given Patient Refuses 1Result Comment: [facility]-[id number] 2Admin Note: declines 3Admin Note: pt declines [...] tablet, Refills 2, Route to Pharmacy Electronically, [facility], 173, cm, 08/29/21 14:14:00 EST, Height Start [...]
--- OUTSIDE RECORDS SUMMARY | 2022-11-17 07:51 | XMS_ITS | Continuity of Care Document ---
Author Name Unknown Organization [facility] Address [address] [place] [address]- Care Team Providers Care Crystal Flat Grinder Name Role Phone Александр BURNETT, Carlo Alvarez Primary Care Physician En[place] [facility] [place] Date(s): 08/23/21 - 09/22/21 [facility] [place] Adult [address] [place] [address]- Allergies, Adverse Reactions, Alerts Substance Reaction Severity Status Indocin stomach pain Active Avelox delerium Active Immunizations Given and Recorded Vaccine Date Status Refusal Reason SARS-CoV-2 mRNA (bcylxvz-ihrp-xdxkk) vax 1 08/18/21 Given SARS-CoV-2 (COVID-19) mRNA BNT-162b2 vac 11/01/20 Recorded SARS-CoV-2 (COVID-19) mRNA BNT-162b2 vac 10/11/20 Recorded hepatitis B adult vaccine 10/25/15 Given Hepatitis A Adult Vaccine 10/25/15 Given tetanus/diphtheria/pertussis, acel(Tdap) 2 10/28/13 Given influenza virus vaccine, inactivated 3 07/09/13 Gi denita Not Given Vaccine Date Status Refusal Reason pneumococcal 23-valent vaccine 10/23/13 Not Given Patient Refuses 1Result Comment: [facility]-[id number] 2Admin Note: declines 3Admin Note: pt declines [...] tablet, Refills 2, Route to Pharmacy Electronically, [facility], 173, cm, 08/29/21 14:14:00 EST, Height Start [...]
--- OUTSIDE RECORDS SUMMARY | 2022-11-17 07:51 | XMS_ITS | Patient Health Record ---
Author [facility] Care Team Providers Care Directional Bore Operator Name Role Phone Peña Sanches [phone] PROBLEMS Type Condition ICD9-CM Code [id number] Code Onset Dates Condition Status W/U Status Risk SNOMED Code Notes Problem Plantar fascial fibromatosis M72.2 confirmed [id number] ALLERGIES Allergen (clinical drug ingredient) Drug/Non Drug Allergy documented on EMR Reaction Allergy Type Onset Date Status indomethacin Indocin([facility] Code:[address]-55) stomach opens Drug Allergy Active moxifloxacin Avelox confusion Drug Allergy Acti ve ENCOUNTERS from 1965 to 2022-11-17 Encounter Location Date Provider Diagnosis [address] [address] Dec, Peña Sanches [address] [address] Dec, Peña Verónica Plantar fascial fibromatosis M72.2 and Pain in left foot M79.[address] [address] Dec, Peña Verónica [address] [address] Dec, Peña Verónica Plantar fascial fibromatosis M72.2 ; Pain in left foot M79.672 ; Calcaneal spur, left foot M77.32 ; Other myositis of left foot M60.872 and Bursitis of left foot M77.52 SOCIAL HISTORY Tobacco Use: Social History Observation Description Date Details (start date - stop date) Former Smoker Sex Assigned At : Social History Observation Description Sex Assigned At Unknown Alcohol Screen Question Answer Notes Did you have a drink containing alcohol in the p ast year? Yes Points 0 Interpretation Negative Tobacco Use/Smoking Question Answer Notes Additional Findings: Tobacco Non-User Current no n-smoker Are you a: former smoker Tobacco use other than smoking: Question Answer Notes Are you an other tobacco user? No REASON FOR REFERRAL from 1965 to 2022-11-17 Diagnosis 1 Pain in unspecified foot (M79.673) Referring Provider First Name Carlo Referring Provider Last Name Александр Referred [facility] Referred Provider Peña Sanches Referred Address [address] [place], [place],[address] Referred Provider Specialty Podiatry Referral Priority Routine VITAL SIGNS from 1965 to 2022-11-17 Height 5 ft 7 in in Dec, Weight 230 lbs Dec, BMI 36.02 kg/m2 Dec, Blood pressure systolic 120 mm Hg Dec, Blood pressure diastolic 70 mm Hg Dec, MEDICATIONS Medication SIG (Take, Route, Fr equency, Duration) Notes Start Date End Date Status Ursodiol 500 MG 1 capsule Orally Once a day Active Cyclobenzaprine HCl PRN Active valACYclovir HCl 500 MG 1 tablet Orally Once a day Active Multivitamin Active REASON FOR VISIT No Information MEDICAL (GENERAL) HISTORY Type Description Date Medical History Arthritis Medical History Back,Hip,and Knee pain Medical History Gall bladder problems Medical History Hepatitis Medical History Reflux ( GERD) Medical History Warts Medical History Chicken pox Medical History low phosphate Medical History covid-19 Surgical History appendectomy 1981 Surgical History gall bladder 2008 Surgical History urrasha strickwrio 2010 MENTAL STATUS No Information ASSESSMENTS Encounter Date Diagnosis Assessment Notes Treatment Notes Treatment Clinical Notes Dec, Pain in left foot (ICD-10 - M79.672) Dec, Plantar fascial fibromatosis (ICD-10 - M72.2) Dec, Pain in left foot (ICD-10 - M79.672) Dec, Plantar fascial fibromatosis (ICD-10 - M72.2) Patient Educated with: HEEL CORD STRETCHES.pdf (HEEL CORD STRETCHES.pdf) Patient Educated with: RICE [facility]ER[facility]Y.pdf (RICE THERAPY.pdf) Dec, Calcaneal spur, left foot (ICD-10 - M77.32) Dec, Other myositis of left foot (ICD-10 - M60.872) Dec, Bursitis of left foot (ICD-10 - M77.52) PLAN OF TREATMENT Treatment Notes Assessment Notes Clinical Notes Plantar fascial fibromatosis Patient Edu cated with: HEEL CORD STRETCHES.pdf (HEEL CORD STRETCHES.pdf) Patient Educated with: RICE [facility]ER[facility]Y.pdf (RICE THERAPY.pdf) Pending Tests Test Name Order Date X ray : Foot, left 3V 2022-01-03 Referrals Referral Date Details Peña Sanches, [address] [place] [address], [place], [address], [email or web address] Insurance Providers Payer Name Payer Address Payer Phone Insured Name Patient Relationship to Insured Coverage Start Date Coverage End Date Subscriber Number Group Number [facility] [address] [facility] [address] [phone] Floyd Trevino Self - patient is the insured [id number]
--- OUTSIDE RECORDS SUMMARY | 2022-11-17 07:51 | XMS_ITS | Continuity of Care Document ---
Author Name Unknown Organization [facility] Address [address] [place] [address]- Care Team Providers Care Optomechanical Engineer Name Role Phone Александр BURNETT, Carlo Alvarez Primary Care Physician Un available Encounter [facility] Date(s): 06/23/22 - 07/23/22 [facility] Adult [address] [place] [address]- Attending Physician: Admtr, Ar8 Admitting Physician: Admtr, Ar8 Referring Physician: Admtr, Ar8 Allergies, Adverse Reactions, Alerts Substance Reaction Severity Status Indocin stomach pain Active Avelox delerium Active Immunizations Given and Recorded Vaccine Date Status Refusal Reason SARS-CoV-2 mRNA (gjhulfz-wxzs-hocjy) vax 1 08/18/21 Given SARS-CoV-2 (COVID-19) mRNA BNT-162b2 vac 11/01/20 Recorded SARS-CoV-2 (COVID-19) mRNA BNT-162b2 vac 10/11/20 Recorded hepatitis B adult vaccine 10/25/15 Given Hepatitis A Adult Vaccine 10/25/15 Given tetanus/diphtheria/pertussis, acel(Tdap) 2 10/28/13 Given influenza virus vaccine, inactivated 3 07/09/13 Gi denita Not Given Vaccine Date Status Refusal Reason pneumococcal 23-valent vaccine 10/23/13 Not Given Patient Refuses 1Result Comment: [facility]-[id number] 2Admin Note: declines 3Admin Note: pt declines [...] tablet, Refills 2, Route to Pharmacy Electronically, [facility], 173, cm, 08/29/21 14:14:00 EST, Height Start [...] 320 ms QTC Calculation(Bezet): 395 ms P [place]: 39 degrees R [place]: 7 degrees T [place]: 30 degrees Normal sinus rhythm Moderate voltage criteria for LVH, may be normal variant Inferior infarct , age undetermined Abnormal ECG When compared with ECG of 07-APR-2009 11:00, Inferior infarct is now Present ST elevation now present in Inferior leads ST elevation now present in Lateral leads 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 Suggest repeat and biomarkers. Confirmed by CEASAR HAYES MD ([id number]) on 10/09/2013 3:32:21 3FINDINGS: Lungs: The lungs are clear. There is no evidence of a pneumothorax or pleural effusion. Cardiomediastinal silhouette:The cardiomediastinal silhouette is normal. 4nad 12983 ;liver biopsy consistent fatty liver 6need report,consistent [...] Date: Patient Care team information Care Team Related Persons Name: DAYNE DUQUE Address: [address] [address]
--- OUTSIDE RECORDS SUMMARY | 2022-11-17 07:51 | XMS_ITS | Continuity of Care Document ---
Author Name Unknown Organization [facility] Address [address] [place] [address]- Care Team Providers Care Respiratory Therapy Manager Name Role Phone Александр BURNETT, Carlo Alvarez Primary Care Physician Encounter [facility] [place] Date(s): 08/18/21 - 09/17/21 [facility] [place], operated [facility] Adult [address] [place] [address]- Allergies, Adverse Reactions, Alerts Substance Reaction Severity Status Indocin stomach pain Active Avelox delerium Active Immunizations Given and Recorded Vaccine Date Status Refusal Reason SARS-CoV-2 mRNA ([id number]) vax 1 08/18/21 Given SARS-CoV-2 (COVID-19) mRNA BNT-162b2 vac 11/01/20 Recorded SARS-CoV-2 (COVID-19) mRNA BNT-162b2 vac 10/11/20 Recorded hepatitis B adult vaccine 10/25/15 Given Hepatitis A Adult Vaccine 10/25/15 Given tetanus/diphtheria/pertussis, acel(Tdap) 2 10/28/13 Given influenza virus vaccine, inactivated 3 07/09/13 Gi denita Not Given Vaccine Date Status Refusal Reason pneumococcal 23-valent vaccine 10/23/13 Not Given Patient Refuses 1Result Comment: [facility]-[id number] 2Admin Note: declines 3Admin Note: pt declines [...] tablet, Refills 2, Route to Pharmacy Electronically, [id number], 173, cm, 08/29/21 14:14:00 EST, Height Start [...]
--- OUTSIDE RECORDS SUMMARY | 2022-11-17 07:51 | XMS_ITS | Continuity of Care Document ---
Author Name Unknown Organization [facility] Address [address] [place] [address]- Care Team Providers Care Research Editor Name Role Phone Александр BURNETT, Carlo Alvarez Primary Care Physician [phone] Encounter [facility] [place] Date(s): 01/18/22 - 02/17/22 [facility] Adult [address] [place] [address]- Allergies, Adverse Reactions, Alerts Substance Reaction Severity Status Indocin stomach pain Active Avelox delerium Active Immunizations Given and Recorded Vaccine Date Status Refusal Reason SARS-CoV-2 mRNA ([id number]) vax 1 08/18/21 Given SARS-CoV-2 (COVID-19) mRNA BNT-162b2 vac 11/01/20 Recorded SARS-CoV-2 (COVID-19) mRNA BNT-162b2 vac 10/11/20 Recorded hepatitis B adult vaccine 10/25/15 Given Hepatitis A Adult Vaccine 10/25/15 Given tetanus/diphtheria/pertussis, acel(Tdap) 2 10/28/13 Given influenza virus vaccine, inactivated 3 07/09/13 Gi denita Not Given Vaccine Date Status Refusal Reason pneumococcal 23-valent vaccine 10/23/13 Not Given Patient Refuses 1Result Comment: [facility]-[id number] 2Admin Note: declines 3Admin Note: pt declines [...] tablet, Refills 2, Route to Pharmacy Electronically, [id number], 173, cm, 08/29/21 14:14:00 EST, Height Start [...]
--- OUTSIDE RECORDS SUMMARY | 2022-11-17 07:51 | XMS_ITS | Continuity of Care Document ---
Author Name Unknown Organization [facility] Address [address] [place] [id number]- Care Team Providers Care Medical Records Analyst Name Role Phone Jeremy Majano DO Primary Care Physician Encounter [facility] [place] Date(s): 09/27/22 - 10/27/[address] [address] Attending Physician: AdmGadiel solomon Admitting Physician: Admtr, [id number] Referring Physician: Admtr, [id number] Allergies, Adverse Reactions, Alerts Substance Reaction Severity Status Indocin stomach pain Active Avelox delerium Active Immunizations Given and Recorded Vaccine Date Status Refusal Reason SARS-CoV-2 mRNA ([id number]) vax 1 08/18/21 Given SARS-CoV-2 (COVID-19) mRNA BNT-162b2 vac 11/01/20 Recorded SARS-CoV-2 (COVID-19) mRNA BNT-162b2 vac 10/11/20 Recorded hepatitis B adult vaccine 10/25/15 Given Hepatitis A Adult Vaccine 10/25/15 Given tetanus/diphtheria/pertussis, acel(Tdap) 2 10/28/13 Given influenza virus vaccine, inactivated 3 07/09/13 Gi denita Not Given Vaccine Date Status Refusal Reason pneumococcal 23-valent vaccine 10/23/13 Not Given Patient Refuses 1Result Comment: [facility]-[id number] 2Admin Note: declines 3Admin Note: pt declines [...] 08/10/22 6:44:00 EST, Route to Pharmacy Electronically, [facility]/pharmacy #[id number], 173, cm, 06/23/22 9:37:00 EST, Height [...] Team Personnel Name: Jeremy Majano DO Position: [facility] Primary Care Physician Member Role: PCP Address: Address: [address] [place] [address]- Care Team Related Persons Name: DAYNE DUQUE Address: home [address] [place] [id number]
--- OUTSIDE RECORDS SUMMARY | 2022-11-17 07:51 | XMS_ITS | Continuity of Care Document ---
Author Name Unknown Organization [facility] Address [address] [place] [address]- Care Team Providers Care Landscaper Helper Name Role Phone Александр BURNETT, Carlo Alvarez Primary Care Physician [phone] [id number] Date(s): 06/17/20 - 07/17/20 [facility] Adult [address] [place] [address]- Allergies, Adverse Reactions, Alerts Substance Reaction Severity [...] 06/16/20 8:09:00 EST, Route to Pharmacy Electronically, [facility]/pharmacy #[id number], 173, cm, 08/11/19 15:30:00 EST, [...]
[2022-11-17 08:19] VITALS: BMI 35.0
[2022-11-17 08:23] VITALS: BP 143/86; PULSE 73; RESP 18; TEMP 36.4; O2SAT 96
[2022-11-17 08:36] VITALS: BMI 35.0
[2022-11-17] MEDS: Lactated Ringers 1,000 ML 100 ML IVCONT (08:39)
[2022-11-17 10:05] VITALS: BP 129/77; PULSE 102; RESP 16; TEMP 36.6; O2SAT 96
--- NOTE | 2022-11-17 10:08 | P.BOP_ITS ---
Brief Operative Note Date of Service: 11/17/22 Pre-op diagnosis: Screening Post-op diagnosis: other (Colon polyp) Procedure: Colonoscopy to the cecum with biopsy and removal of polyp Surgeon: Jeremy Gallardo Anesthesia: MAC Was an Food And Drug Inspector used for this Procedure?: No Estimated blood loss (mL): 2.0 Pathology: other (A. Polyp at 20cm) Condition: stable Disposition: PACU
[2022-11-17 10:20] VITALS: BP 136/84; PULSE 90; RESP 14; O2SAT 97
[2022-11-17 10:35] VITALS: BP 135/90; PULSE 88; RESP 14; TEMP 36.3; O2SAT 98
--- NOTE | 2022-11-17 10:48 | OP_ITS ---
DATE OF SERVICE: 11/17/2022 SURGEON: Jeremy Gallardo MD INDICATIONS: The patient presents for evaluation of personal history of tubular adenoma of the colon and colorectal cancer screening. Full consent was obtained from him for this, including risks of bleeding and perforation. PREOPERATIVE DIAGNOSIS: Colorectal cancer screening and personal history of tubular adenomas of the colon. POSTOPERATIVE DIAGNOSIS: Colorectal cancer screening and personal history of tubular adenomas of the colon, small colon polyp, diverticulosis and internal hemorrhoids. PROCEDURE PERFORMED: Colonoscopy to the cecum with biopsy and removal of polyp. ESTIMATED BLOOD LOSS: COMPLICATIONS: ANESTHESIA: Medication Used: Monitored anesthesia care. ASSISTANTS: SPECIMENS: DESCRIPTION OF PROCEDURE: The patient was placed in the left lateral decubitus position. The digital rectal exam revealed no abnormalities. The Olympus video pediatric colonoscope was entered into the rectum and advanced to the cecum with the assistance of abdominal wall pressure. Once in the cecum, I did identify a normal-appearing cecal pouch with appendiceal orifice and a normal-appearing ileocecal valve. The entire cecum and the ileocecal valve appeared normal. The scope was then slowly withdrawn, assessing all mucosal surfaces carefully. Preparation was excellent. At 20 cm, was a flat, approximately 4 mm polyp, which was biopsied and completely removed with a cold biopsy forceps. I did not visualize any other polyps, colitis, nor angiodysplasia. There was a mild amount of sigmoid diverticulosis. In the rectum, the scope was retroflexed, visualizing internal hemorrhoids, but no other pathology. The rectal mucosa appeared normal. The scope was straightened and withdrawn from the patient. He tolerated the procedure well and was returned to the recovery area in stable condition. IMPRESSION: 1. Small colon polyp. 2. Diverticulosis. 3. Internal hemorrhoids. PLAN: The results of the biopsy will be checked. I would recommend a repeat colonoscopy in 5 years. He was advised to see me again in a year for followup of his underlying history of fatty liver. MD MANDEEP Omalley/YOUSUF / [id number] MTDKian
--- NOTE | 2022-11-17 10:51 | HO.ANESPROP2 ---
[facility] Past Medical History Medical History (Updated 11/16/22 @ 12:53 by Kaylyn Law RN) Epiploic appendagitis Fatty liver H/O flexible sigmoidoscopy Hx of urethral stricture Pericarditis Family History Family history of problems with anesthesia: No Surgical History Surgical History (Updated 11/16/22 @ 12:53 by Kaylyn Law RN) H/O colonoscopy H/O esophagogastroduodenoscopy Hx of appendectomy Hx of cholecystectomy History of Problems with Anesthesia: No Social History Social History Patient Tobacco Use Status: Former Tobacco user Quit Date: 1997 Tobacco use type: Cigar Use of substances other than those prescribed or required for medical reasons: No Are you DNR?: No Advance Directives: No Advance Directives Information Provided: Yes Meds Allergies Allergy/AdvReac Type Severity Reaction Status Date / Time indomethacin [From INDOCIN] Allergy Mild UNKNOWN Unverified 03/18/20 15:12 moxifloxacin [From AVELOX] Allergy Mild UNKNOWN Unverified 03/18/20 15:12 Active Medications: Current Medications Lactated Ringer's (Lr) 1,000 mls @ 100 mls/hr IVCONT .Q10H PRICILA Last Admin: 11/17/22 08:39 Dose: 100 mls/hr Sodium Biphosphate/Sodium Phosphate (Sodium Phosphate,[place]ue-Dibasic 133 Ml Enema) 133 ml VT ONCE PRN PRN Reason: Poor Colonoscopy Prep Results Home Medications Medication Instructions Recorded Confirmed Last Taken Type Centrum Silver 11/16/22 11/16/22 Unknown History Vitamin C 11/16/22 Unknown History ursodiol 500 mg tablet 500 mg PO BID 11/16/22 11/16/22 Unknown History valacyclovir 500 mg tablet 500 mg PO DAILY 11/16/22 11/16/22 Unknown History Exam Exam Date and Time: November 17, 2022 1051 Height,Weight and Vital Signs: Height 5 ft 8 in Weight 104.326 kg Last Vital Signs Temp 97.3 F 11/17/22 10:35 Pulse 88 11/17/22 10:35 Resp 14 11/17/22 10:35 BP 135/90 H 11/17/22 10:35 Pulse Ox 98 11/17/22 10:35 O2 Del Method Room Air 11/17/22 10:35 Airway Mallampati Class: II TM Dist: >3cm Neck ROM: Full Loose/Missing/Broken Teeth: No Heart: rr Lungs: cta Assessment and Plan Assessment Anesthesia Assessment: Anesthesia Plan Discussed and Chart Reviewed Final Anesthetic Review Family History of Problems with Anesthesia: No History of Problems with Anesthesia: No NPO: Yes ASA Class: II Final Preanesthetic Review: No Changes in Pt Med Stat, Consent Obtained/Reviewed and Anes Risks/Benef Reviewed Patient Risk: Low Procedure Risk: Low Anesthetic Plan Anesthetic Plan: MAC: Disposition: Standard PACU
== END 2022-11-17 10:53 | disposition home or self-care (01) ==
PROVIDERS: PCP Internal Medicine; Visit Provider Internal Medicine
PROC: 0DJD8ZZ Inspection of Lower Intestinal Tract, Via Natural or Artificial Opening Endoscopic (ICD-10-PCS; CPT 45378; principal; 2022-11-17 09:00)
DX: Z12.11 Encounter for screening for malignant neoplasm of colon (principal); Z86.010 Personal history of colon polyps; D12.5 Benign neoplasm of sigmoid colon; K57.30 Diverticulosis of large intestine without perforation or abscess without bleeding; K64.8 Other hemorrhoids; K76.0 Fatty (change of) liver, not elsewhere classified; Z79.899 Other long term (current) drug therapy; Z90.49 Acquired absence of other specified parts of digestive tract; Z87.891 Personal history of nicotine dependence
CPT/HCPCS: 45380; 88305

== ENCOUNTER 2023-03-07 12:51 | Outpatient (REF) | payer OTHER, SELFPAY ==
--- NOTE | ~2023-03-07 | US_ITS ---
EXAMINATION: US DIAGNOSTIC ULTRASOUND BREAST, LEFT CLINICAL INFORMATION: Left axillary mass palpable to patient.. COMPARISON: None available. TECHNIQUE: Ultrasound of the left axilla is performed with real-time hernandez scale imaging and color Doppler. FINDINGS: There is no mass, abnormal lymph node, abnormal shadowing, or cystic abnormality within the left axilla at the region of palpable concern. Only normal axillary fat is imaged. Results are discussed with the patient at time of visit. US/US breast LT limited mamm only IMPRESSION: No findings suspicious for malignancy. No findings to explain left axillary pain. Recommend clinical management. ASSESSMENT: BI-RADS 1: Negative RECOMMENDATION: 1. Patient should be managed based on the clinical impression. This patient's information was entered into a reminder system with a target due date for their next mammogram.
== END 2023-03-07 12:52 | disposition home or self-care (01) ==
LOC: HO.MAMMO 12:51
PROVIDERS: PCP Family Medicine; Visit Provider Family Medicine
DX: R22.32 Localized swelling, mass and lump, left upper limb (principal)
CPT/HCPCS: 76642

== ENCOUNTER → 2023-03-07 13:00 | Outpatient (BNV) | payer OTHER, SELFPAY | PROVIDERS: PCP Family Medicine; Visit Provider Radiology Diagnostic Radiology | DX: M79.622 Pain in left upper arm (principal) | CPT/HCPCS: 76882 ==

== ENCOUNTER 2024-02-11 17:54 | Emergency (ER) | payer OTHER, SELFPAY ==
--- NOTE | ~2024-02-11 | CT_ITS ---
EXAMINATION: CT ANGIOGRAM OF THE CHEST WITH AND WITHOUT CONTRAST (CT PULMONARY ANGIOGRAM FOR PE) CLINICAL INFORMATION: Reason for Exam right sided pleuritic pain, positive d-dimer COMPARISON: None available. TECHNIQUE: Prior to contrast administration, noncontrast localization images were obtained. Subsequently, multidetector volumetric imaging was performed from the thoracic inlet to below the diaphragms following the administration of 65 mL Omnipaque 350 intravenous contrast. No contrast reaction reported Sagittal, coronal, and MIP oblique sagittal reformatted images were obtained on the CT workstation, uploaded to PACS, and reviewed. This CT examination was performed using dose optimization techniques as appropriate, variously including the following: *Automated exposure control *Adjustment of mA and/or kV according to patient size (this includes techniques or standardized protocols for targeted exams where dose is matched to indication/reason for exam; i.e. extremities or head) *Use of iterative reconstruction technique Total exam dose-length product 275 mGy-cm FINDINGS: QUALITY OF STUDY/CONTRAST BOLUS: Satisfactory. PULMONARY ARTERIES: No pulmonary emboli. THORACIC AORTA: No aneurysm. LUNG: There is atelectatic change and/or scarring at both lung bases. There is a 5 mm nodule superior segment left lower lobe. There is also pleural nodule superior segment left lower lobe measuring 5 mm. 4 mm nodule right lower lobe and a 4 mm nodular right middle lobe. The lungs are otherwise clear. PLEURA: No pleural effusion or pneumothorax. MEDIASTINUM: Normal heart size. No pericardial effusion. No hilar or mediastinal lymphadenopathy. No evidence of septal bowing or right heart strain. CORONARY ARTERY CALCIFICATION: Mild. CHEST WALL/AXILLA: No axillary or internal mammary lymphadenopathy. OSSEOUS STRUCTURES: No acute or suspicious osseous abnormality. UPPER ABDOMEN: Both kidneys are scarred. No reflux of contrast into the hepatic veins to suggest elevated right heart pressures. CT/CT angio chest PE protocol IMPRESSION: No evidence of pulmonary embolism. Atelectasis and/or scarring at the lung bases. Bilateral pulmonary nodules measuring up to 5 mm. Consider a 6-12 month follow-up. VTE: negative.
--- NOTE | ~2024-02-11 | CT_ITS ---
EXAMINATION: CT ABDOMEN AND PELVIS WITHOUT CONTRAST CLINICAL INFORMATION: flank pain. COMPARISON: No pertinent prior studies are available for comparison. TECHNIQUE: Multidetector volumetric imaging was performed from the superior aspect of the liver through the pubic symphysis without contrast per renal stone protocol. Sagittal and coronal reformatted images were obtained on the technologist workstation. This CT examination was performed using dose optimization techniques as appropriate, variously including the following: *Automated exposure control *Adjustment of mA and/or kV according to patient size (this includes techniques or standardized protocols for targeted exams where dose is matched to indication/reason for exam; i.e. extremities or head) *Use of iterative reconstruction technique DLP: 806 mGy-cm. FINDINGS: LUNG BASES: Minimal dependent atelectasis at the right lung base LIVER, GALLBLADDER, BILIARY TREE: The non-contrast liver is normal in size, shape, and attenuation. No focal hepatic lesion or biliary ductal dilatation is present. The gallbladder surgically absent. PANCREAS: Unremarkable. SPLEEN: Unremarkable. ADRENAL GLANDS: Unremarkable. KIDNEYS AND URETERS: Bilateral areas of cortical scarring and cortical low-attenuation cysts are seen. Nonobstructing 5 mm calcification within the left midpole collecting system. I do not appreciate any hydronephrosis or hydroureter. No perinephric stranding. No ureteric calculi. BLADDER: Compressed. There is concentric bladder wall thickening. Tiny calcification at the bladder dome in the region of expected a urachus but I do not appreciate any obvious soft tissue mass in this location on this noncontrast study. GASTROINTESTINAL TRACT: Scattered colonic diverticulosis but no colonic wall thickening or pericolonic inflammatory change to suggest diverticulitis. Visualized small bowel unremarkable. Appendix is not visualized and may be surgically absent ABDOMINAL WALL: No significant hernia is appreciated. LYMPHOVASCULAR STRUCTURES: No lymphadenopathy. The aorta is unremarkable. Retroaortic left renal vein with branching incidentally noted. PELVIC VISCERA: Unremarkable. OSSEUS STRUCTURES: Mild degenerative changes CT/CT abdomen pelvis wo IV con IMPRESSION: Chronic appearing changes as described above. I do not appreciate any obstructive changes to the kidneys or ureters. Nonobstructing 5 mm calcification within the left midpole collecting system. Bladder is decompressed but there is concentric bladder wall thickening. Underlying cystitis cannot be excluded and could be clinically correlated.
--- NOTE | ~2024-02-11 | XR_ITS ---
EXAMINATION: XR CHEST CLINICAL INFORMATION: Pleuritic chest pain. COMPARISON: 10/09/2013. TECHNIQUE: 2 views of the chest were obtained. FINDINGS: No significant abnormality is noted involving the heart, lungs, mediastinum, bony thorax or soft tissues. XR/XR chest 2V IMPRESSION: Unremarkable examination.
[2024-02-11 17:57] VITALS: BP 162/101; PULSE 101; RESP 18; TEMP 36.8; O2SAT 98; BMI 35.0
--- NOTE | 2024-02-11 18:10 | ED.GENADULT ---
HPI - General Adult General Chief complaint: Abdominal Pain Stated complaint: right side abd pain radiates to back Time Seen by Provider: 02/12/24 02:06 History of Present Illness ED Provider: Hannah HYATT narrative: The patient is a 58-year-old male who has been having pains on his right side for about 48 hours. His pains began on Sunday night. He indicates pain in his right upper quadrant. He says that the pain has been worse if he takes a deep breath. Today the pain was such that he had to leave work because he was feeling too uncomfortable. He also felt that eating food exacerbated the pain. He has had no pain or swelling in his legs. No fever, sweats, chills. No cough or sputum. No nausea, vomiting, diarrhea. He has a history of an appendectomy and a cholecystectomy. No history of DVT or PE. Related Data Home Medications ?Medication ?Instructions ?Recorded ?Confirmed Centrum Silver 11/16/22 11/16/22 Vitamin C 11/16/22 ursodiol 500 mg tablet 500 mg PO BID 11/16/22 11/16/22 valacyclovir 500 mg tablet 500 mg PO DAILY 11/16/22 11/16/22 Previous Rx's ?Medication ?Instructions ?Recorded omeprazole 40 mg capsule,delayed 40 mg PO DAILY #30 caps 02/12/24 release Allergies Allergy/AdvReac Type Severity Reaction Status Date / Time indomethacin [From INDOCIN] Allergy Mild UNKNOWN Verified 02/14/24 05:45 moxifloxacin [From AVELOX] Allergy Mild UNKNOWN Verified 02/14/24 05:45 Review of Systems Review of Systems: Yes all other systems are reviewed and are negative [facility] Past Medical History Medical History Hx of urethral stricture Pericarditis Epiploic appendagitis H/O flexible sigmoidoscopy Fatty liver Surgical History Hx of cholecystectomy Hx of appendectomy H/O esophagogastroduodenoscopy H/O colonoscopy Social History Social History Alcohol intake: current Alcohol intake frequency: holidays/special occasions only Alcohol type: beer Patient Tobacco Use Status: Former Tobacco user Tobacco use type: Cigar Smoked in Last 30 Days: No Use of substances other than those prescribed or required for medical reasons: No Substance Use Type Other:: Edibles Advance Directives: No Advance Directives Information Provided: Yes Do you have a plan to hurt others: No Plan Physical Exam ED Vital Signs: Vital Signs - 24 hr 02/11/24 17:57 02/11/24 22:28 02/11/24 23:13 Temperature 98.2 F 98.5 F Pulse Rate 101 H 104 H 84 Respiratory Rate 18 22 H 18 Blood Pressure 162/101 H 183/107 H 169/99 H Pulse Oximetry 98 97 95 Oxygen Delivery Method Room Air Room Air Room Air 02/12/24 02:05 Temperature 98.7 F Pulse Rate 85 Respiratory Rate 18 Blood Pressure 128/66 Pulse Oximetry 98 Oxygen Delivery Method Room Air BMI result Body Mass Index 35.0 Const Other: The patient is a 58-year-old man who was awake and alert. He does not appear in acute distress. HENMT Other: Face is symmetrical. Mucous membranes moist. Eyes Other: Pupils are round equal, conjunctivae clear Neck Other: No JVD, no cervical adenopathy Chest Other: No significant chest wall tenderness Resp Effort & Inspection: normal respiratory effort Auscultation: clear to auscultation bilaterally Cardio Rate: regular rate Rhythm: regular rhythm Heart sounds: S1 normal heart sound present and S2 normal heart sound present GI Other: The patient had some right upper quadrant tenderness. The abdomen is otherwise soft and nontender. Skin Other: Skin is pale and dry Neuro Other: The patient is awake and alert and appropriate with a normal mental status. Moving all extremities normally. Grossly neurologically intact. Extrem Other: No calf swelling or tenderness, no asymmetry, no peripheral edema Course Course Course Narrative: RME performed by Monique Oviedo PA-C. Patient is a 58 year old assigned male at presenting to the emergency department with right flank pain. Patient states over the last 2 days he has had right sided flank pain. Detailed physical exam and review of systems are deferred to the primary care md. Labs, imaging, and swabs ordered. Patient placed back in the waiting room pending room availability and results. Medications Administered Discontinued Medications Generic Name Dose Route Start Last Admin Trade Name Freq PRN Reason Stop Dose Admin Acetaminophen 975 mg 02/11/24 22:27 02/11/24 22:33 Acetaminophen 325 Mg Tablet PO 02/11/24 22:28 975 mg ONCE ONE Administration Iohexol 65 ml 02/12/24 03:35 02/12/24 03:35 Iohexol 350 Mg/Ml 100 Ml Infus..Btl IV 02/12/24 03:36 65 ml ONCE ONE Administration Omeprazole 40 mg 02/12/24 04:42 02/12/24 05:24 Omeprazole 40 Mg Capsule. PO 02/12/24 04:43 40 mg ONCE ONE Administration Medical Decision Making Medical Decision Making [facility] Narrative: The patient is a 58-year-old male with a history of a cholecystectomy who presents with right-sided pain that is pleuritic. He was mildly tachycardic and hypertensive at triage. He has been afebrile. He is not exhibiting any signs of respiratory distress. Overall he does not look toxic. He had an EKG that showed normal sinus rhythm at 81 beats per minute. Possibly some mild nonspecific changes but I did not feel there were any definite ischemic changes. The patient's physical exam seemed to indicate right upper quadrant tenderness. Patient also describes the discomfort as quite pleuritic. He has had a cholecystectomy. His LFTs were normal which would argue against choledocholithiasis. Given the pleuritic nature of his discomfort a D-dimer was done that was elevated. He had a negative CT pulmonary angiogram. The CT pulmonary angiogram also included a significant portion of his upper abdomen. I discussed the images with the radiologist. There is no evidence of biliary ductal dilation. This would also argue against choledocholithiasis as an etiology of his pain. Given the absence of biliary ductal dilatation and normal LFTs I did not pursue an ultrasound of his biliary system. Other labs were unremarkable. He has a mildly elevated CRP of uncertain significance. Ultimately I felt that no further workup was clearly indicated. Perhaps his pain is musculoskeletal in etiology. Perhaps this is some degree of gastritis. He was started on omeprazole and advised to follow up with his PCP Lab Data 02/11/24 18:20 02/11/24 18:20 Labs: Lab Results 02/11/24 02/11/24 02/12/24 Range/Units 18:20 19:01 02:44 WBC 9.7 (4.8-10.8) X10*3/uL RBC 4.55 L (4.60-5.80) X10*6/uL Hgb 15.1 (14.0-18.0) g/dl Hct 42.5 (42.0-52.0) % MCV 93.4 (80.0-98.0) fL MCH 33.2 H (27.0-33.0) pg MCHC 35.5 (31.0-36.0) g/dl RDW 13.1 (11.0-16.0) % Plt Count 175 (160-400) X10*3/uL MPV 8.9 L (9.4-12.4) fL Immature Gran % (Auto) 0.3 (0.0-0.4) % Neut % (Auto) 76.7 H (45-73) % Lymph % (Auto) 12.7 L (20-40) % [place] % (Auto) 8.9 (2-11) % Eos % (Auto) 0.9 (0-4) % Baso % (Auto) 0.5 (0-2) % Lymph # (Auto) 1.2 (1.2-4.9) X10*3/uL [place] # (Auto) 0.9 (0.1-1.2) X10*3/uL Eos # (Auto) 0.1 (0.0-0.4) X10*3/uL Baso # (Auto) 0.1 (0.0-0.2) X10*3/uL Abs Immat Gran (auto) 0.03 (0.00-0.03) X10*3/uL Absolute Neuts (auto) 7.4 (2.0-8.3) x10*3/uL Absolute Nucleated RBC 0.000 (0.0-0.012) X10*3/uL Nucleated RBC % (auto) 0.0 (0.0-0.2) /100WBC D-Dimer High Sensitivty 390 NG/ML Sodium 135 (135-145) mmol/L Potassium 4.2 (3.3-5.1) mmol/L Chloride 104 (96-108) mmol/L Carbon Dioxide 24 (22-29) mmol/L Anion Gap 11 L (12-20) BUN 15 (9-16) mg/dL Creatinine 0.96 (0.5-1.4) mg/dL Estim Creat Clear Calc 98.1 Estimated GFR > 60 Random Glucose 121 H (60-115) mg/dL Calcium 9.2 (8.4-10.2) mg/dL Total Bilirubin 1.0 (0.0-1.0) mg/dL Direct Bilirubin 0.3 (0.0-0.5) mg/dL AST 37 (5-37) U/L ALT 33 (0-40) U/L Alkaline Phosphatase 91 (39-117) U/L C-Reactive Protein 2.76 H (< or = 0.50) mg/dL Total Protein 8.0 (6.5-8.0) g/dL Albumin 4.0 (3.5-5.0) g/dL Lipase 23 (8-78) U/L Urine Color Dark Yellow Urine Appearance Clear Urine pH 6.0 (5.0-9.0) Ur Specific [place] 1.015 (1.005-1.025) Urine Protein Negative (Neg-Trace) mg/dL Urine Glucose (UA) Negative (Negative) mg/dL Urine Ketones Negative (Negative) mg/dL Urine Blood Negative (Negative) Urine Nitrite Negative (Negative) Ur Leukocyte Esterase Negative (Negative) Influenza Type A (PCR) NEGATIVE (Negative) Influenza Type B (PCR) NEGATIVE (Negative) RSV RNA Qual (PCR) NEGATIVE (Negative) SARS-CoV-2 RNA (RT-PCR) NEGATIVE (Negative) Discharge Plan Discharge Clinical Impression: Right upper quadrant abdominal pain Patient Disposition: Home, Self-Care Additional Instructions: Your testing in the emergency room seems largely reassuring from the point of view of any acutely dangerous process. I think it would be reasonable for you to take omeprazole daily for several days to see if this helps. I would avoid spicy or fatty foods. 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 If at any point you feel significantly worse, especially if you develop a fever or vomiting, return to the emergency room for further evaluation. Prescriptions: New omeprazole 40 mg capsule,delayed release(DR/EC) 40 mg PO DAILY Qty: 30 0RF No Action valacyclovir 500 mg tablet 500 mg PO DAILY ursodiol 500 mg tablet 500 mg PO BID Centrum Silver Vitamin C Referrals: Jeremy Majano DO [Primary Care Provider] - (Right-sided pleuritic upper abdominal pain) Jeremy Gallardo MD [Physician] - (Right upper abdominal pain) Interventions: ED Discharge Assessment Last Done: 02/12/24 05:18 Discharge Date/Time: 02/12/24 05:25 Print Language: [place]
[2024-02-11 18:24] LABS: MANUAL DIFF FLAG NO
[2024-02-11 18:28] LABS: Basophils Absolute Auto 0.1 X10*3/uL (0.0-0.2); Basophils Percent Auto 0.5 % (0-2); Eosinophils Absolute Auto 0.1 X10*3/uL (0.0-0.4); Eosinophils Percent Auto 0.9 % (0-4); Hematocrit 42.5 % (42.0-52.0); Hemoglobin 15.1 g/dl (14.0-18.0); Imm Gran Abs Auto 0.03 X10*3/uL (0.00-0.03); Imm Gran Pct Auto 0.3 % (0.0-0.4); Lymphocytes Absolute Auto 1.2 X10*3/uL (1.2-4.9); Lymphocytes Percent Auto 12.7 % (20-40); Mean Corpuscular HGB Conc 35.5 g/dl (31.0-36.0); Mean Corpuscular Hemoglobin 33.2 pg (27.0-33.0); Mean Corpuscular Volume 93.4 fL (80.0-98.0); Mean Platelet Volume 8.9 fL (9.4-12.4); Monocytes Absolute Auto 0.9 X10*3/uL (0.1-1.2); Monocytes Percent Auto 8.9 % (2-11); Neutrophils Absolute Auto 7.4 x10*3/uL (2.0-8.3); Neutrophils Percent Auto 76.7 % (45-73); Platelet Count 175 X10*3/uL (160-400); Red Blood Count 4.55 X10*6/uL (4.60-5.80); Red Cell Distribution Width 13.1 % (11.0-16.0); White Blood Count 9.7 X10*3/uL (4.8-10.8)
[2024-02-11 18:52] LABS: Alanine Aminotransferase 33 U/L (0-40); Alkaline Phosphatase 91 U/L (39-117); Anion Gap 11 (12-20); Aspartate Amino Transferase 37 U/L (5-37); Bilirubin Direct 0.3 mg/dL (0.0-0.5); Blood Urea Nitrogen 15 mg/dL (9-16); Calcium 9.2 mg/dL (8.4-10.2); Carbon Dioxide 24 mmol/L (22-29); Chloride 104 mmol/L (96-108); Creatinine Clr Calc Pharmacy 98.1; Estimated Glomerular Filt Rate > 60; Glucose Random 121 mg/dL (60-115); Lipase 23 U/L (8-78); Potassium 4.2 mmol/L (3.3-5.1); Sodium 135 mmol/L (135-145)
[2024-02-11 19:14] LABS: Influenza A PCR NEGATIVE (Negative); Influenza B PCR NEGATIVE (Negative); Resp Syncy Virus RNA Qual PCR NEGATIVE (Negative); SARS COV2 PCR INHOUSE NEGATIVE (Negative)
[2024-02-11 19:19] LABS: Appearance Urine Clear; Color Urine Dark Yellow; Glucose Urine UA Negative (Negative); Leukocyte Esterase Urine Negative (Negative); Nitrite Urine Negative (Negative); Specific Gravity - Urine 1.015 (1.005-1.025); Urine Blood Negative (Negative); Urine Ketones Negative (Negative); Urine Protein Negative (Neg-Trace)
[2024-02-11 22:28] VITALS: BP 183/107; PULSE 104; RESP 22; O2SAT 97
[2024-02-11] MEDS: Acetaminophen 325 MG TABLET 975 MG PO (22:33)
[2024-02-11 23:13] VITALS: BP 169/99; PULSE 84; RESP 18; TEMP 36.9; O2SAT 95
[2024-02-12 02:05] VITALS: BP 128/66; PULSE 85; RESP 18; TEMP 37.1; O2SAT 98
--- NOTE | 2024-02-12 02:22 | ECG_ITS ---
Test Reason : PLEURITIC CHEST PAIN Blood Pressure : / mmHG Vent. Rate : 081 BPM Atrial Rate : 081 BPM P-R Int : 164 ms QRS Dur : 072 ms QT Int : 360 ms P-R-T Axes : 037 010 094 degrees QTc Int : 418 ms Normal sinus rhythm Minimal voltage criteria for LVH, may be normal variant ( R in aVL ) T wave abnormality, consider lateral ischemia Abnormal ECG When compared with ECG of 09-OCT-2013 04:29, ST no longer elevated in Inferior leads ST no longer elevated in Lateral leads T wave inversion now evident in Lateral leads Referred By: Medardo Young Electronically Signed By:GREGOR HARRIS
[2024-02-12 02:31] LABS: C Reactive Protein 2.76 mg/dL (< or = 0.50)
[2024-02-12 02:56] LABS: D Dimer High Sensitivity 390 NG/ML
[2024-02-12] MEDS: iohexoL 350 MG/ML 100 ML INFUS..BTL 65 ML IV (03:35)
[2024-02-12 04:55] VITALS: BP 145/89; PULSE 79; RESP 16; TEMP 36.7; O2SAT 96
[2024-02-12 05:18] VITALS: BP 145/89; PULSE 79; RESP 16; TEMP 36.7; O2SAT 96
[2024-02-12] MEDS: Omeprazole 40 MG CAPSULE.DR PO (05:24)
== END 2024-02-12 05:25 | disposition home or self-care (01) ==
PROVIDERS: Physician Assistant Medical; Emergency Provider Emergency Medicine; PCP Family Medicine
DX: R10.11 Right upper quadrant pain (principal); R07.89 Other chest pain; R00.0 Tachycardia, unspecified; I10 Essential (primary) hypertension; Z03.818 Encounter for observation for suspected exposure to other biological agents ruled out
CPT/HCPCS: 0241U; 36415; 71046; 71275; 74176; 80053; 81003; 82248; 83690; 85025; 85379; 86140; 93005; 99284; 99285; Q9967

== ENCOUNTER → 2024-02-12 02:22 | Outpatient (BNV) | payer OTHER, SELFPAY | PROVIDERS: Emergency Provider Emergency Medicine; PCP Family Medicine; Visit Provider Internal Medicine | DX: R94.31 Abnormal electrocardiogram [ECG] [EKG] (principal) | CPT/HCPCS: 93010 ==

== ENCOUNTER 2024-02-14 05:42 | Emergency (ER) | payer OTHER, SELFPAY ==
--- NOTE | ~2024-02-14 | US_ITS ---
EXAMINATION: US ABDOMEN LIMITED CLINICAL INFORMATION: Right upper quadrant abdominal pain history of cholecystectomy. COMPARISON: CT abdomen from 02/11/2024 TECHNIQUE: Real-time imaging of the right upper quadrant abdominal viscera. FINDINGS: PANCREAS: Normal. LIVER: Liver demonstrates a slight nodular contour with coarsened hepatic echotexture and increased echogenicity potentially reflecting a cirrhotic morphology. No focal hepatic lesion. There is no intrahepatic biliary duct dilatation seen. GALLBLADDER: Surgically absent. COMMON BILE DUCT: Postsurgical dilatation of the common bile duct measuring 0.9 cm in diameter. RIGHT KIDNEY: Right renal cystic foci are noted the largest measuring up to 4.8 cm, simple appearing, not follow-up. No hydronephrosis. No renal calculi or focal parenchymal lesions. The kidney measures 10.7 cm in maximum dimension. FREE FLUID: None. US/US abdomen limited IMPRESSION: 1. Liver demonstrates a slight nodular contour with coarsened hepatic echotexture and increased echogenicity potentially reflecting a cirrhotic morphology. 2. Status post cholecystectomy with postsurgical dilatation of the common bile duct measuring 0.9 cm in diameter. 3. Right renal cystic foci are noted the largest measuring up to 4.8 cm, simple appearing, not requiring follow-up.
[2024-02-14 05:43] VITALS: BP 134/86; BP 145/84; PULSE 83; PULSE 96; RESP 14; TEMP 36.7; O2SAT 96; BMI 32.6
[2024-02-14 05:56] LABS: MANUAL DIFF FLAG NO
[2024-02-14 05:57] LABS: Basophils Percent Auto 0.5 % (0-2); Eosinophils Absolute Auto 0.1 X10*3/uL (0.0-0.4); Eosinophils Percent Auto 1.2 % (0-4); Hematocrit 40.5 % (42.0-52.0); Hemoglobin 14.8 g/dl (14.0-18.0); Imm Gran Abs Auto 0.02 X10*3/uL (0.00-0.03); Imm Gran Pct Auto 0.3 % (0.0-0.4); Lymphocytes Absolute Auto 0.9 X10*3/uL (1.2-4.9); Lymphocytes Percent Auto 11.9 % (20-40); Mean Corpuscular HGB Conc 36.5 g/dl (31.0-36.0); Mean Corpuscular Hemoglobin 33.1 pg (27.0-33.0); Mean Corpuscular Volume 90.6 fL (80.0-98.0); Mean Platelet Volume 8.9 fL (9.4-12.4); Monocytes Absolute Auto 0.7 X10*3/uL (0.1-1.2); Neutrophils Absolute Auto 5.9 x10*3/uL (2.0-8.3); Neutrophils Percent Auto 77.1 % (45-73); Platelet Count 163 X10*3/uL (160-400); Red Blood Count 4.47 X10*6/uL (4.60-5.80); Red Cell Distribution Width 12.7 % (11.0-16.0); White Blood Count 7.7 X10*3/uL (4.8-10.8)
[2024-02-14 06:11] LABS: Alanine Aminotransferase 29 U/L (0-40); Albumin Level 3.6 g/dL (3.5-5.0); Alkaline Phosphatase 79 U/L (39-117); Anion Gap 11 (12-20); Aspartate Amino Transferase 28 U/L (5-37); Bilirubin Total 1.4 mg/dL (0.0-1.0); Blood Urea Nitrogen 16 mg/dL (9-16); Calcium 8.4 mg/dL (8.4-10.2); Carbon Dioxide 22 mmol/L (22-29); Chloride 108 mmol/L (96-108); Creatinine Clr Calc Pharmacy 105.9; Estimated Glomerular Filt Rate > 60; Glucose Random 143 mg/dL (60-115); Lipase 17 U/L (8-78); Sodium 137 mmol/L (135-145); Total Protein 7.4 g/dL (6.5-8.0)
--- NOTE | 2024-02-14 06:56 | ED.ABDPAIN ---
HPI - Abdominal Pain General Chief Complaint: Abdominal Pain Stated Complaint: ruq pain Time Seen by Provider: 02/14/24 06:32 Source: patient, RN notes reviewed and old records reviewed Mode of arrival: ambulatory History of Present Illness ED Provider: Delaney Combs PA-C HPI narrative: 58-year-old male with a past medical history of urethral stricture, pericarditis, cholecystectomy, presenting to the ED complaining of RUQ abdominal pain worse with deep inspiration, movement, and eating x5 days. Patient was seen and treated in our ED on 02/10 for similar symptoms, had workup that was unremarkable however states pain worsened. Reports mild constipation, relieved with OTC medication. Denies chest pain, shortness of breath, nausea/vomiting, diarrhea, recent travel, history of clots, cough. MD elicited complaint: abdominal pain Related Data Home Medications ?Medication ?Instructions ?Recorded ?Confirmed Centrum Silver 11/16/22 11/16/22 Vitamin C 11/16/22 ursodiol 500 mg tablet 500 mg PO BID 11/16/22 11/16/22 valacyclovir 500 mg tablet 500 mg PO DAILY 11/16/22 11/16/22 Previous Rx's ?Medication ?Instructions ?Recorded omeprazole 40 mg capsule,delayed 40 mg PO DAILY #30 caps 02/12/24 release aluminum-mag hydroxide-simethicone 5 ml PO 5XD PRN dyspepsia #30 mL 02/14/24 200 mg-200 mg-20 mg/5 mL oral susp (Maalox Advanced) Allergies Allergy/AdvReac Type Severity Reaction Status Date / Time indomethacin [From INDOCIN] Allergy Mild UNKNOWN Verified 02/14/24 05:45 moxifloxacin [From AVELOX] Allergy Mild UNKNOWN Verified 02/14/24 05:45 Review of Systems Review of Systems Constitutional: No Fever, No Chills ENT/Mouth: No Ear Pain, No Nasal Congestion, No sore throat, No Rhinorrhea, No Swallowing Difficulty Cardiovascular: No Chest Pain, No SOB Respiratory: No Cough, No Sputum, No Wheezing Gastrointestinal: No Nausea, No Vomiting, No Diarrhea, + Constipation, + Abdominal pain Genitourinary: No Dysuria, No Urinary Frequency, No Hematuria,No Flank Pain Musculoskeletal: No joint pain, No Myalgias Skin: No Skin Lesions, No rash Neuro: No Weakness Yes all other systems are reviewed and are negative Constitutional: Reports as per HPI [facility] Past Medical History Attestation statement: The following information was validated with the patient. Source: old records reviewed Medical History Hx of urethral stricture Pericarditis Epiploic appendagitis H/O flexible sigmoidoscopy Fatty liver Surgical History Hx of cholecystectomy Hx of appendectomy H/O esophagogastroduodenoscopy H/O colonoscopy Social History Social History Alcohol intake: current Alcohol intake frequency: holidays/special occasions only Alcohol type: beer Patient Tobacco Use Status: Former Tobacco user Tobacco use type: Cigar Smoked in Last 30 Days: No Use of substances other than those prescribed or required for medical reasons: No Substance Use Type Other:: Edibles Advance Directives: No Advance Directives Information Provided: Yes Do you have a plan to hurt others: No Plan Physical Exam ED Vital Signs: Vital Signs - 24 hr 02/14/24 05:43 02/14/24 07:18 02/14/24 08:00 Temperature 98.1 F 99 F Pulse Rate 83 72 Respiratory Rate 14 20 18 Blood Pressure 134/86 127/78 Pulse Oximetry 96 95 Oxygen Delivery Method Room Air Room Air 02/14/24 10:52 Temperature 98.5 F Pulse Rate 80 Respiratory Rate 20 Blood Pressure 148/92 H Pulse Oximetry 96 Oxygen Delivery Method Room Air BMI result Body Mass Index 32.6 Const General: cooperative, healthy appearing and no acute distress Orientation/consciousness: patient oriented x3 Limitations: no limitations HENMT Head: Yes normal to inspection and Yes atraumatic Ears: hearing grossly normal bilaterally General nose exam: Normal external nose present Face and sinus: Yes normal facial exam Eyes General: appearance normal, both eyes and all related structures EOM: EOMs intact bilaterally Neck Neck: Yes normal visual inspection and Yes no meningeal signs Chest Other: No flail chest. No rash. Chest palpation & inspection: normal inspection of the chest, no crepitus and no tenderness Resp Effort & Inspection: normal respiratory effort and no respiratory distress Auscultation: clear to auscultation bilaterally Cardio Rate: regular rate Heart sounds: S1 normal heart sound present and S2 normal heart sound present GI Inspection: Yes normal to inspection Palpation (GI): Soft to palpation, Tenderness to palpation present (GI) in the RUQ; with no rebound tenderness, no guarding and not rigid General: Yes no CVA tenderness Back/Spine/Pelvis Other: No midline cervical/thoracic/lumbar spinous tenderness/step-off or deformity Back: no CVA tenderness Skin Rashes: no rashes Wounds: no wounds Neuro General: patient oriented x3, tone normal and no meningeal signs Cranial nerves: Yes CN's II-XII intact bilaterally Gait exam (Neuro): Normal gait present Extrem General: Yes normal to inspection Course Course Course Narrative: -labs reassuring. T bili mildly elevated US abdomen limited IMPRESSION: 1. Liver demonstrates a slight nodular contour with coarsened hepatic echotexture and increased echogenicity potentially reflecting a cirrhotic morphology. 2. Status post cholecystectomy with postsurgical dilatation of the common bile duct measuring 0.9 cm in diameter. 3. Right renal cystic foci are noted the largest measuring up to 4.8 cm, simple appearing, not requiring follow-up. > patient denies being a daily drinker. Denies excessive Tylenol use. on re-evaluation patient is [employer] in the RUQ/right abdomen, will consult General surgery to take a 2nd look at CT from 02/10 >> Dr. Vickers reviewed the CT, nothing surgical, will add on hepatitis panel and outpatient follow-up with GI -repeat troponin without rise, mi unlikely Results discussed with patient including worrisome signs and symptoms and strict return precautions, and when to return to the emergency department. They verbalized understanding and feel safe for discharge at this time. Medical Decision Making Medical Decision Making MDM Narrative: 58-year-old male with a past medical history of urethral stricture, pericarditis, cholecystectomy, presenting to the ED complaining of RUQ abdominal pain worse with deep inspiration, movement, and eating x5 days. On exam vital signs stable, appears uncomfortable, NAD/nontoxic appearing abdomen soft RUQ tenderness, lungs CTA, no chest wall reproducible tenderness/crepitus or rash. Concern for ductal dilation/obstruction vs pancreatitis. PE and pneumonia on differential however lower as patient had CTA/CXR 2 days ago which were unremarkable. Lower suspicion for renal stone. Patient had CT AP on 02/11/2024 without acute findings. Lower suspicion for atypical ACS/myocarditis/pericarditis Plan: EKG, labs, UA, abdomen ultrasound, pain control, re-evaluate Please refer to course for remaining clinical decision making, interpretation of labs/imaging results, and discussions with consultants and/or family members. Differential Diagnosis Differential Diagnoses: The differential diagnosis associated with the presentation includes As above Admission/Observation Consideration of admission/observation: Escalation of care including admission/observation considered Consult Healthcare Provider Management of the patient was discussed with: Cook Dessert (Dr. Vickers) Lab Data MDM Lab Attestation statement: I reviewed the patient's lab results. 02/14/24 05:52 02/14/24 05:52 Labs: Lab Results 02/14/24 02/14/24 Range/Units 05:52 10:26 WBC 7.7 (4.8-10.8) X10*3/uL RBC 4.47 L (4.60-5.80) X10*6/uL Hgb 14.8 (14.0-18.0) g/dl Hct 40.5 L (42.0-52.0) % MCV 90.6 (80.0-98.0) fL MCH 33.1 H (27.0-33.0) pg MCHC 36.5 H (31.0-36.0) g/dl RDW 12.7 (11.0-16.0) % Plt Count 163 (160-400) X10*3/uL MPV 8.9 L (9.4-12.4) fL Immature Gran % (Auto) 0.3 (0.0-0.4) % Neut % (Auto) 77.1 H (45-73) % Lymph % (Auto) 11.9 L (20-40) % [place] % (Auto) 9.0 (2-11) % Eos % (Auto) 1.2 (0-4) % Baso % (Auto) 0.5 (0-2) % Lymph # (Auto) 0.9 L (1.2-4.9) X10*3/uL [place] # (Auto) 0.7 (0.1-1.2) X10*3/uL Eos # (Auto) 0.1 (0.0-0.4) X10*3/uL Baso # (Auto) 0.0 (0.0-0.2) X10*3/uL Abs Immat Gran (auto) 0.02 (0.00-0.03) X10*3/uL Absolute Neuts (auto) 5.9 (2.0-8.3) x10*3/uL Absolute Nucleated RBC 0.000 (0.0-0.012) X10*3/uL Nucleated RBC % (auto) 0.0 (0.0-0.2) /100WBC Sodium 137 (135-145) mmol/L Potassium 4.0 (3.3-5.1) mmol/L Chloride 108 (96-108) mmol/L Carbon Dioxide 22 (22-29) mmol/L Anion Gap 11 L (12-20) BUN 16 (9-16) mg/dL Creatinine 0.86 (0.5-1.4) mg/dL Estim Creat Clear Calc 105.9 Estimated GFR > 60 Random Glucose 143 H (60-115) mg/dL Calcium 8.4 D (8.4-10.2) mg/dL Magnesium 1.9 (1.6-2.6) mg/dL Total Bilirubin 1.4 H (0.0-1.0) mg/dL AST 28 (5-37) U/L ALT 29 (0-40) U/L Alkaline Phosphatase 79 (39-117) U/L Troponin I High Sens 5.2 4.4 (<3.5-35.0) ng/L Total Protein 7.4 (6.5-8.0) g/dL Albumin 3.6 (3.5-5.0) g/dL Lipase 17 (8-78) U/L Independent Interpretation I performed an independent interpretation of an: EKG (My interpretation EKG normal sinus rhythm rate of 81. Pr interval 162. No STEMI. ) Radiology Impression Discussion of test interpretation with radiology: I have reviewed the radiologist's reading. Independent Historian Clinical information obtained from an independent historian. History obtained from or confirmed by: EMS External Record Review External record reviewed: Inpatient record, Office record, Outpatient record, Prior outpatient labs, Prior outpatient radiology, Primary care record and Outside ED record Tests considered The following testing was considered but not selected: As above Prescription Management I considered prescription management with: Pain Medication Chronic Conditions Patient?s care impacted by: Other Medications Administered Discontinued Medications Generic Name Dose Route Start Last Admin Trade Name Freq PRN Reason Stop Dose Admin Al Hydroxide/Mg Hydroxide 30 ml 02/14/24 07:02 02/14/24 07:17 Magnesium Hydrox/Alum Hydrox 30 Ml Oral.Susp PO 02/14/24 07:03 30 ml ONCE ONE Administration Sodium Chloride 1,000 mls @ 999 mls/hr 02/14/24 06:45 02/14/24 10:42 Ns IV 02/14/24 07:45 Infused .Q1H1M PRICILA Infusion Morphine Sulfate 2 mg 02/14/24 06:43 02/14/24 07:18 Morphine Sulfate 2 Mg/Ml Cartridge IVPUSH 02/14/24 06:44 2 mg ONCE ONE Administration Protocol Ondansetron HCl 4 mg 02/14/24 06:43 02/14/24 07:18 Ondansetron Hcl 4 Mg/2 Ml Vial IVPUSH 02/14/24 06:44 4 mg ONCE ONE Administration Discharge Plan Discharge Clinical Impression: Abdominal pain, RUQ Patient Disposition: Home, Self-Care Instructions: Cirrhosis (ED), Liver Disease Diet (DC), Abdominal Pain (ED) Additional Instructions: Your blood work and ultrasound are reassuring. Your ultrasound shows liver cirrhosis Please avoid excessive Tylenol use and alcohol use. You need to follow-up with gastroenterology If your symptoms persist or worsen, pain becomes unbearable, you are unable to eat or drink return to the emergency department Prescriptions: New alum-mag hydroxide-simeth [Maalox Advanced] 200-200-20 mg/5 mL suspension 5 ml PO 5XD PRN (Reason: dyspepsia) Qty: 30 0RF Rx Instructions: administer between meals and at bedtime No Action valacyclovir 500 mg tablet 500 mg PO DAILY ursodiol 500 mg tablet 500 mg PO BID Centrum Silver Vitamin C omeprazole 40 mg capsule,delayed release(DR/EC) 40 mg PO DAILY Qty: 30 0RF Referrals: [facility] [Provider Group] - 2 days Print Language: Mongolian
[2024-02-14 06:58] LABS: Magnesium 1.9 mg/dL (1.6-2.6)
--- NOTE | 2024-02-14 07:02 | ECG_ITS ---
Test Reason : RUQ Blood Pressure : / mmHG Vent. Rate : 081 BPM Atrial Rate : 081 BPM P-R Int : 162 ms QRS Dur : 074 ms QT Int : 362 ms P-R-T Axes : 031 012 063 degrees QTc Int : 420 ms Normal sinus rhythm Minimal voltage criteria for LVH, may be normal variant ( R in aVL ) Nonspecific T wave abnormality Abnormal ECG When compared with ECG of 12-FEB-2024 02:29, T wave inversion no longer evident in Lateral leads Referred By: Delaney Combs Electronically Signed By:AZUL WIGGINS
[2024-02-14 07:03] LABS: Troponin-I High Sensitivity 5.2 ng/L (<3.5-35.0)
[2024-02-14] MEDS: Magnesium Hydrox/Alum Hydrox 30 ML ORAL.SUSP PO (07:17)
[2024-02-14 07:18] VITALS: RESP 20
[2024-02-14] MEDS: Morphine Sulfate 2 MG/ML CARTRIDGE IVPUSH (07:18)
[2024-02-14] MEDS: ondansetron HCL 4 MG/2 ML VIAL IVPUSH (07:18)
[2024-02-14] MEDS: 0.9 % Sodium Chloride 1,000 ML 999 ML IV (07:20)
[2024-02-14 08:00] VITALS: BP 127/78; PULSE 72; RESP 18; TEMP 37.2; O2SAT 95
[2024-02-14 10:52] VITALS: BP 148/92; PULSE 80; RESP 20; TEMP 36.9; O2SAT 96
[2024-02-14 10:52] LABS: Troponin-I High Sensitivity 4.4 ng/L (<3.5-35.0)
[2024-02-14 11:39] LABS: Ethanol < 10 mg/dL
[2024-02-14 11:50] VITALS: BP 148/92; PULSE 80; RESP 18; TEMP 36.9; O2SAT 98
--- NOTE | 2024-02-14 11:51 | PC.NURSE ---
Discharge plan reviewed with patient and . patient stating he was told by provider he would be discharged with pain medication, provider aware stating will send pain medication to pharmacy. Patiet aware of need to follow up with dr michelle
--- NOTE | 2024-02-14 11:56 | PC.NURSE ---
Called Dr. magallanes`s office , office confirmed that they have patients medical records and that patient has an apt in oct with provider
[2024-02-14 12:19] LABS: HBS Num1 0.42 mIU/mL (0-7.99); HBc Num1 0.14 S/CO (0.00-0.79); HBsAGNum1 0.25 S/CO (0.00-0.99); Hepatitis A Antibody IgM 0.16 Index (0-0.79); Hepatitis B Core Antibody Nonreactive (Nonreactive); Hepatitis B Surface Antigen Negative (Negative); ~Hepatitis A Antibody IgM Nonreactive (Nonreactive); ~Hepatitis B Surface Antibody NONREACTIVE (Nonreactive); ~Hepatitis C Antibody Nonreactive (Nonreactive)
== END 2024-02-14 11:56 | disposition home or self-care (01) ==
PROVIDERS: Physician Assistant; Emergency Provider Emergency Medicine
DX: R10.11 Right upper quadrant pain (principal); R94.31 Abnormal electrocardiogram [ECG] [EKG]; R10.9 Unspecified abdominal pain; R11.0 Nausea; Z79.899 Other long term (current) drug therapy; Z87.891 Personal history of nicotine dependence
CPT/HCPCS: 36415; 76705; 80053; 80307; 83690; 83735; 84484; 85025; 86704; 86706; 86709; 86803; 87340; 93005; 96361; 96374; 96375; 99284; 99285; J2270; J2405

== ENCOUNTER 2024-04-09 07:00 | Outpatient (REF) | payer OTHER, SELFPAY ==
[2024-04-11 13:13] LABS: Alpha Fetoprotein 7.5 ng/mL (<6.1)
[2024-04-16 00:48] LABS: FIB-ALT 37 U/L (9-46); FIB-Alpha-2-Macroglobulin 213 mg/dL (106-279); FIB-Apolipoprotein A1 212 mg/dL (94-176); FIB-GGT 134 U/L (3-85); FIB-Haptoglobin 68 mg/dL (43-212); FIB-Total Bilirubin 0.8 mg/dL (0.2-1.2); Liver Fibrosis Score 0.44; Liver Fibrosis Stage F1-F2; Nec Inflam Act Grade A0-A1; Nec Inflam Act Score 0.23; Reference ID 5154491
== END 2024-04-09 07:01 | disposition home or self-care (01) ==
LOC: HO.LAB 07:00
PROVIDERS: PCP Family Medicine; Visit Provider Internal Medicine
DX: K74.00 Hepatic fibrosis, unspecified (principal); K76.0 Fatty (change of) liver, not elsewhere classified
CPT/HCPCS: 36415; 81596; 82105

== ENCOUNTER 2024-11-28 08:45 | Day surgery (SDC) | payer OTHER, SELFPAY ==
--- OUTSIDE RECORDS SUMMARY | 2024-11-21 14:46 | XMS_ITS | Clinical Summary ---
Author Organization [facility], Address [address] [place] [address] Phone Care Team Providers Care Barn Manager Name Role Phone Carlo Fountain MD Primary Care Provider [phone] Allergies Active Allergy Reactions Criticality Noted Date Comments Indomethacin 08/15/2021 Other reaction(s): stomach pain Moxifloxacin 08/15/2021 Other reaction(s): delerium Medications Multiple Vitamins-Minera ls (CENTRUM SILVER PO) Take by mouth Active Omeprazole Magnesium (PRILOSEC OTC PO) Take by mouth Active valACYclovir (VALTREX) 500 MG tablet Take 500 mg by mouth in the morning and 500 mg in the evening. Active b complex vitamins capsule Take 1 capsule by mouth 1 (one) time each day Active Ascorbic Acid (vitamin C) 1000 MG tablet Take 1,000 mg by mouth 1 (one) time each day Active Active Problems Problem Noted Date Diagnosed Date Microscopic hematuria 01/18/2022 Overview (01/18/2022): neg evalBeing evaluated by urologyworkup Hypophosphatemia 10/06/2021 Gastroesophageal reflux disease 07/05/2020 Immunizations Immunization Administration Dates Next Due Hepatitis A 10/25/2015 Hepatitis B 10/25/2015 Influenza, Unspecified 07/09/2013 Pfizer SARS-COV-2 11/01/2020,10/11/2020 SARS-CoV-2, Unspecified 08/18/2021 Tdap 10/28/2013 Social History Tobacco Use Types Packs/Day Years Used Date Smoking Tobacco: Never Assessed Sex and Gender Information Value Date Recorded Sex Assigned at Not on file Legal Sex Male 11:45 AM EDT Gender Identity Not on file Sexual Orientation Not on file Plan of Treatment Health Maintenance Due Date Last Done Comments Hepatitis B Vaccine (1 of 3 - 19+ 3-dose series) 03/0310/25/2015 Pneumococcal Vaccine: 50+ Years (1 of 2 - PCV) 984 Colorectal Cancer Screening: Annual FOBT 2014 Colorectal Cancer Screening: Colonoscopy 2014 Colorectal Cancer Screening: Sigmoidoscopy 2014 Influenza Vaccine (Season Ended) 2025 07/09/[address] [facility] Care Teams Barn Manager Relationship Specialty Start Date End Date Carlo Fountain MD [address] [place] [address] [address] [place], [place] PCP - General Internal Medicine 01/12/22
[2024-11-26 15:56] VITALS: BMI 34.2
--- NOTE | 2024-11-27 13:16 | P.CONAN_ITS ---
Documented by User: Irene Harris NP 11/27/24 13:17 HPI - Anesthesia Eval Consult details Narrative: 59yo M for Upper Endoscopy [facility] Past Medical History Medical History GERD (gastroesophageal reflux disease) Multiple pulmonary nodules FADIA (obstructive sleep apnea) Hx of urethral stricture Pericarditis Epiploic appendagitis H/O flexible sigmoidoscopy Fatty liver Family History Family history of problems with anesthesia: No Surgical History Surgical History Hx of cholecystectomy Hx of appendectomy H/O esophagogastroduodenoscopy H/O colonoscopy History of Problems with Anesthesia: No Social History Social History Alcohol intake: current Alcohol intake frequency: holidays/special occasions only Alcohol type: beer Patient Tobacco Use Status: Former Tobacco user Tobacco use type: Cigar Second Hand Smoke Exposure: No Use of substances other than those prescribed or required for medical reasons: No Have you been hit, kicked, punched, or otherwise hurt by someone within the past year? If so, by whom?: No Are you DNR?: No Advance Directives: No Advance Directives Information Provided: Yes Advance Directives on File: No Poor oral hygiene: No Meds Allergies Allergy/AdvReac Type Severity Reaction Status Date / Time indomethacin [From INDOCIN] Allergy Mild UNKNOWN Verified 02/14/24 05:45 moxifloxacin [From AVELOX] Allergy Mild UNKNOWN Verified 02/14/24 05:45 Home Medications ?Medication ?Instructions ?Recorded ?Confirmed ?Last Taken ?Type Centrum Silver 1 tab PO DAILY 11/16/22 11/28/24 Unknown History ursodiol 500 mg tablet 500 mg PO BID 11/16/22 11/28/24 Unknown History valacyclovir 500 mg tablet 500 mg PO DAILY 11/16/22 11/28/24 Unknown History ascorbic acid (vitamin C) 500 mg 500 mg PO DAILY 11/26/24 11/28/24 Unknown History chewable tablet (Vitamin C) Exam Height,Weight and Vital Signs: Height 5 ft 8 in Weight 102.058 kg Narrative Narrative: EKG 07/2024 Ventricular Rate: 108 BPM Atrial Rate: 108 BPM P-R Interval: 148 ms QRS Duration: 70 ms Q-T Interval: 310 ms QTC Calculation(Bazett): 415 ms P Courtland: 32 degrees R Courtland: 8 degrees T Courtland: 89 degrees Sinus tachycardia Minimal voltage criteria for LVH, may be normal variant ( R in aVL ) ST and T wave abnormality, consider lateral ischemia Abnormal ECG Confirmed by SANTOS LEE MD ([id number]) on 08/02/2024 8:59:41 PM Assessment and Plan Assessment Anesthesia Assessment: Chart Reviewed Final Anesthetic Review Family History of Problems with Anesthesia: No History of Problems with Anesthesia: No Documented by User: Mariano Medeiros MD 11/28/24 10:38 [facility] Past Medical History Medical History GERD (gastroesophageal reflux disease) Multiple pulmonary nodules FADIA (obstructive sleep apnea) Hx of urethral stricture Pericarditis Epiploic appendagitis H/O flexible sigmoidoscopy Fatty liver Cognitive capacity: good Functional capacity: independent ambulation Surgical History Surgical History Hx of cholecystectomy Hx of appendectomy H/O esophagogastroduodenoscopy H/O colonoscopy Social History Social History Alcohol intake: current Alcohol intake frequency: holidays/special occasions only Alcohol type: beer Patient Tobacco Use Status: Former Tobacco user Tobacco use type: Cigar Second Hand Smoke Exposure: No Use of substances other than those prescribed or required for medical reasons: No Have you been hit, kicked, punched, or otherwise hurt by someone within the past year? If so, by whom?: No Are you DNR?: No Advance Directives: No Advance Directives Information Provided: Yes Advance Directives on File: No Poor oral hygiene: No Meds Allergies Allergy/AdvReac Type Severity Reaction Status Date / Time indomethacin [From INDOCIN] Allergy Mild UNKNOWN Verified 02/14/24 05:45 moxifloxacin [From AVELOX] Allergy Mild UNKNOWN Verified 02/14/24 05:45 Home Medications ?Medication ?Instructions ?Recorded ?Confirmed ?Last Taken ?Type Centrum Silver 1 tab PO DAILY 11/16/22 11/28/24 Unknown History ursodiol 500 mg tablet 500 mg PO BID 11/16/22 11/28/24 Unknown History valacyclovir 500 mg tablet 500 mg PO DAILY 11/16/22 11/28/24 Unknown History ascorbic acid (vitamin C) 500 mg 500 mg PO DAILY 11/26/24 11/28/24 Unknown History chewable tablet (Vitamin C) Exam Airway Mallampati Class: II TM Dist: >3cm Heart: rrr Lungs: cta Assessment and Plan Final Anesthetic Review ASA Class: II Final Preanesthetic Review: No Changes in Pt Med Stat, Meds/Allgs Chart Reviewed, Consent Obtained/Reviewed and Anes Risks/Benef Reviewed Patient Risk: Low Procedure Risk: Low Anesthetic Plan Anesthetic Plan: MAC: and Agree w/ Assess. and Plan Disposition: Standard PACU
[2024-11-28 08:59] VITALS: BMI 35.4
[2024-11-28 09:07] VITALS: BP 132/90; PULSE 66; RESP 16; TEMP 36.5; O2SAT 96
[2024-11-28] MEDS: Lactated Ringers 1,000 ML 100 ML IVCONT (09:14)
[2024-11-28 10:59] VITALS: BP 131/89; PULSE 105; RESP 16; TEMP 36.4; O2SAT 94
--- NOTE | 2024-11-28 11:02 | PM.OP ---
Brief Operative Note Date of Service: 11/28/24 Pre-op diagnosis: Abdominal pain Post-op diagnosis: other (Gastritis) Procedure: EGD with biopsies Surgeon: Jeremy Gallardo MD Anesthesia: MAC Was an Budget And Policy Analyst used for this Procedure?: No Estimated blood loss (mL): 2.0 Pathology: other (A. Gastric antrum B. EG Junction at 38cm) Condition: stable Disposition: PACU
[2024-11-28 11:14] VITALS: BP 143/91; PULSE 96; RESP 16; O2SAT 96
--- NOTE | 2024-11-28 11:43 | OP_ITS ---
DATE OF SERVICE: 11/28/2024 SURGEON: Jeremy Gallardo MD INDICATIONS: The patient presents for evaluation of abdominal pain. Full consent was obtained from him for this, including risks of bleeding and perforation. PREOPERATIVE DIAGNOSIS: POSTOPERATIVE DIAGNOSIS: PROCEDURE PERFORMED: Esophagogastroduodenoscopy with biopsies. ESTIMATED BLOOD LOSS: COMPLICATIONS: ANESTHESIA: Medication used, monitored anesthesia care. ASSISTANTS: SPECIMENS: PREOPERATIVE DIAGNOSES: Abdominal pain. POSTOPERATIVE DIAGNOSES: Abdominal pain, chronic gastritis, minimal hiatal hernia. DESCRIPTION OF PROCEDURE: The patient was placed in the left lateral decubitus position. The Olympus video gastroscope was passed in the posterior oropharynx and upper esophagus under direct vision. The scope was passed slowly to the distal esophagus. The gastroesophageal junction appeared at 38 cm. There was a very minimal irregularity, but no esophagitis. There was a minimal hiatal hernia. The scope was advanced to the pylorus and the duodenum was cannulated to the descending portion. The duodenum, including the bulb, appeared normal. Scope was withdrawn back into the stomach. The gastric antrum and body had changes consistent with a chronic gastritis, but no evidence of any active erosions or ulceration. There was good peristalsis. The scope was retroflexed visualizing the proximal stomach carefully, which appeared normal, without any sign of mass or ulceration. The scope was straightened. Biopsies were obtained from the gastric antrum. The scope was withdrawn back to the esophagus. The esophageal mucosa appeared normal. There was no evidence of any varices. Biopsies were obtained at the EG junction. There was no definitive evidence of Foley esophagus. The scope was withdrawn from the patient. He tolerated the procedure well and was returned to recovery area in stable condition. IMPRESSION: 1. Chronic appearing gastritis. 2. Minimal hiatal hernia. PLAN: The results of biopsies will be checked. At this point, he has been doing well and not having any particular issues with abdominal discomfort off the omeprazole. He will continue to be observed in that regard. He does have an appointment to see me again in the Fall for followup in regard to the underlying fatty liver. He will continue his Ursodiol. He will contact me in the interim as needed. This has been discussed with his . MD MANDEEP Omalley/YOUSUF / [phone] [facility] C[facility]
== END 2024-11-28 11:48 | disposition home or self-care (01) ==
PROVIDERS: PCP Family Medicine; Visit Provider Internal Medicine
PROC: 0DJ08ZZ Inspection of Upper Intestinal Tract, Via Natural or Artificial Opening Endoscopic (ICD-10-PCS; CPT 43235; principal; 2024-11-28 10:20)
DX: R10.13 Epigastric pain (principal); R10.11 Right upper quadrant pain; K76.0 Fatty (change of) liver, not elsewhere classified; K29.50 Unspecified chronic gastritis without bleeding; K44.9 Diaphragmatic hernia without obstruction or gangrene; G47.33 Obstructive sleep apnea (adult) (pediatric); Z79.899 Other long term (current) drug therapy; Z88.8 Allergy status to other drugs, medicaments and biological substances; Z90.49 Acquired absence of other specified parts of digestive tract; Z98.890 Other specified postprocedural states
CPT/HCPCS: 43239; 88305; 88313; 88342; J2003; J2704; J3010

== ENCOUNTER 2025-04-03 13:37 | Outpatient (REF) | payer OTHER, SELFPAY ==
--- OUTSIDE RECORDS SUMMARY | 2025-04-03 13:52 | XMS_ITS | Encounter Summary ---
Author Organization [facility] Address [address] [place] [address] Phone Care Team Providers Care Unit Support Representative Name Role Phone Carlo Fountain MD Primary Care Provide r Encounter Details Date Type Department Care Team (Late st Contact Info) Description 08/26/2024 Procedure Pass Echo Lab [place] [place] [address] Social History Tobacco Use Types Packs/Day Years Used Date Smoking Tobacco: Former Cigarettes Smokeless Tobacco: Former Education Answer Date Recorded Are you interested in more education? Not on nivia e 10/27/2022 Are you concerned about learning? Not on file 10/27/2022 No 10/27/2022 No 10/27/2022 Digital Access Answer Date Recorded No 11/27/2022 No 11/27/2022 Reliable internet access at home? Not on file 11/27/2022 Device with a working camera? Not on file Sex and Gender Information Value Date Recorded Sex Assigned at Not on file Legal Sex Male 9:41 PM EDT Gender Identity Not on file Sexual Orientation Not on file documented as of this encounter Plan of Treatment Upcoming Encounters Date Type Department Care Team (Late st Contact Info) Description 05/12/2025 7:45 AM EST Office Visit [facility] [address] [place] [address] 3rd Floor, [address] [place] [address] Donato Cavazos, DO [address] [address] [email or web address] documented as of this encounter Visit Diagnoses Not on filedocumented in this encounter Care Teams Unit Support Representative Relationship Specialty Start Date End Date Carlo Fountain MD [address] [place] [id number] PCP - General 08/15/21 documented as of this encounter Additional Source Comments The information contained in this document represents components of the legal health record. It is not the complete legal health record.[facility]
--- OUTSIDE RECORDS SUMMARY | 2025-04-03 13:52 | XMS_ITS | Clinical Summary ---
Author Organization [facility] Address [address] [place] [address] Phone Care Team Providers Care Furnace Combustion Tester Name Role Phone Carlo Fountain MD Primary Care Provide r Allergies Active Allergy Reactions Criticality Noted Date Comments Moxifloxacin 08/15/2021 Indomethacin 08/15/2021 Medications ursodioL (ACTIGALL) 500 MG tablet Take 500 mg by mouth 2 (two) times a day. Active valACYclovir (VALTREX) 500 MG tablet Take 500 mg by mouth daily. Active acetaminophen (TYLENOL) 325 mg tablet Take 2 tablets (650 mg total) by mouth every 6 (six) hours as needed for mild pain. 40 tablet 2 Active Additional Information Patient not taking.Reported on 08/26/2024 cyclobenzaprine (FLEXERIL) 5 MG tablet Take 1 tablet (5 mg total) by mouth 3 (three) times a day as needed (Muscle spasm). Do not drink or drive after taking 12 tablet 2 Active Additional Information Patient not taking.Reported on 08/26/2024 LUIZA-LANTA 200-200-20 mg/5 mL Susp 5 ML ORALLY 5 TIMES A DAY NEEDED FOR DYSPEPSIA ADMINISTER BETWEEN MEALS AND AT BEDTIME 4 Active morphine (MSIR) 15 MG tablet TAKE 1 TABLET BY MOUTH EVERY 6 HOURS NEEDED FOR PAIN FOR 3 DAYS PAIN SCALE 7-10 4 Active omeprazole (PRILOSEC) 20 MG capsule Take 40 mg by mouth. 4 Active predniSONE (DELTASONE) 20 MG tablet See Instructions, 2 tablets daily for 5 days and then 1 tablet daily for 5 days, # 15 tablet, 0 Refills, Maintenance, 05/28/23 9:26:00 EST, [facility]/pharmacy #[id number], Partial fill upon patient request if the prescription is for a schedule II opioid drug., 17... 3 Active ibuprofen (ADVIL,MOTRIN) 600 MG tablet 600 mg. 5 Active Active Problems Problem Noted Date Diagnosed Date Precordial pain 08/26/2024 Assessment & Plan (08/26/2024 11:26 AM EST): None at this time Pericardial effusion (noninflammatory) 5 Assessment & Plan (08/26/2024 11:26 AM EST): He recently had a viral infection which probably triggered this nonetheless he is very stable and asymptomatic I am just going to follow-up with the standard echo to look for pericardial effusion his ECG does not show any evidence of pericarditis Immunizations Immunization Administration Dates Next Due Tdap 04/18/2024 Social History Tobacco Use Types Packs/Day Years [...] on file Sexual Orientation Not on file Last Filed Vital Signs Vital Sign Reading Time Taken Comments Blood Pressure 136/84 08/26/2024 11:11 AM EST Pulse 98 08/26/2024 11:11 AM EST Temperature 36.1 C (97 F) 04/18/2024 2:43 PM EDT Respiratory Rate 16 04/18/2024 2:43 PM EDT Oxygen Saturation 98% 08/26/2024 11:11 AM EST Inhaled Oxygen Concentration - - Weight 106.1 kg (234 lb) 08/26/2024 11:11 AM EST Height 170.2 cm (5' 7.01 ) 08/26/2024 11:[address] Body Mass Index 36.64 08/26/2024 11:11 AM EST Plan of Treatment Upcoming Encounters Date Type Department Care Team (Late st Contact Info) Description 05/12/2025 7:45 AM EST Office Visit [facility] [address]rd Floor, [address] [place], [place] [id number] Donato Cavazos DO 22 [facility] [address] [place] [phone] [email or web address] Health Maintenance Due Date Last Done Comments LIPID PANEL 1965 DEPRESSION SCREENING 1977 SMOKING Hx and SMOKELESS TOBACCO SCREENING 1978 HEPATITIS C SCREENING 1983 HIV ONE-TIME SCREENING (18-6 5 YEARS) 1983 SCREENING FOR DIABETES 2000 COLOGUARD 2010 COLONOSCOPY 2010 COLORECTAL CANCER SCREENING 2010 FIT TEST 2010 FOBT 2010 SIGMOIDOSCOPY 2010 VIRTUAL COLONOSCOPY 2010 PNEUMOCOCCAL VACCINES (50+ years) (1 of 1 - PCV) 2015 ZOSTER VACCINES (1 of 2) 2015 INFLUENZA VACCINE (#1) 2025 07/09/2013 COVID-19 VACCINE (4 - 2024-2 6 season) 2025 08/18/2021, 11/01/2020, 10/11/2020 Adult Td,Tdap Booster 04/18/2034 04/18/2024 , 10/28/2013 RSV VACCINE (1 - 1-dose 75+ series) 2040 HEPATITIS A VACCINES Aged Out 10/25/2015 No long er eligible based on patient's age to complete this topic HIB VACCINES Aged Out No longer eligi ble based on patient's age to complete this topic MENINGOCOCCAL VACCINES (ACWY) Aged Out No longer eligible based on patient's age to complete this topic MENINGOCOCCAL VACCINES (B) Aged Out N o longer eligible based on patient's age to complete this topic Medical Devices Not on file Insurance GENERIC COMMERCIAL GENERIC COMMERCIAL GENERIC COMMERCIAL GENERIC COMMERCIAL NIKKIEJERRY LESTER [id number] GENERIC COMMERCIAL GENERIC COMMERCIAL GENERIC COMMERCIAL [place] [address] [place] [address] INSURANCE Care Teams Furnace Combustion Tester Relationship Specialty Start Date End Date Carlo Fountain MD [address] [place] [id number] PCP - General 08/15/21 Additional Source Comments The information contained in this document represents components of the legal health record. It is not the complete legal health record.[facility]
[2025-04-03 13:58] LABS: MANUAL DIFF FLAG NO
[2025-04-03 14:48] LABS: Hematocrit 41.0 % (42.0-52.0); Hemoglobin 14.5 g/dl (14.0-18.0); Imm Gran Abs Auto 0.01 X10*3/uL (0.00-0.03); Imm Gran Pct Auto 0.2 % (0.0-0.4); Lymphocytes Absolute Auto 0.8 X10*3/uL (1.2-4.9); Mean Corpuscular HGB Conc 35.4 g/dl (31.0-36.0); Mean Corpuscular Hemoglobin 32.8 pg (27.0-33.0); Mean Corpuscular Volume 92.8 fL (80.0-98.0); NRBC Abs Auto 0.000 X10*3/uL (0.0-0.012); NRBC Pct Auto 0.0 /100WBC (0.0-0.2); Platelet Count 147 X10*3/uL (160-400); Red Blood Count 4.42 X10*6/uL (4.60-5.80); White Blood Count 5.6 X10*3/uL (4.8-10.8)
[2025-04-03 14:57] LABS: INTERNATIONAL NORM RATIO 1.0 (0.9-1.1); Prothrombin Time 11.0 SEC (10.9-12.4)
[2025-04-03 15:00] LABS: Partial Thromboplastin Time 33.6 SEC (26.7-34.1)
[2025-04-03 15:10] LABS: Alanine Aminotransferase 45 U/L (0-40); Albumin Level 4.2 g/dL (3.5-5.0); Alkaline Phosphatase 96 U/L (39-117); Aspartate Amino Transferase 56 U/L (5-37); Total Protein 7.6 g/dL (6.5-8.0)
[2025-04-10 00:03] LABS: FIB-ALT 36 U/L (9-46); FIB-Alpha-2-Macroglobulin 207 mg/dL (106-279); FIB-Apolipoprotein A1 218 mg/dL (94-176); FIB-GGT 107 U/L (3-70); FIB-Haptoglobin 53 mg/dL (43-212); FIB-Total Bilirubin 0.5 mg/dL (0.2-1.2); Liver Fibrosis Score 0.34; Liver Fibrosis Stage F1-F2; Nec Inflam Act Grade A0-A1; Nec Inflam Act Score 0.20
== END 2025-04-03 13:38 | disposition home or self-care (01) ==
LOC: HO.LAB 13:37
PROVIDERS: Dentist Oral and Maxillofacial Surgery; Visit Provider Internal Medicine
DX: K74.00 Hepatic fibrosis, unspecified (principal); K76.0 Fatty (change of) liver, not elsewhere classified; Z13.1 Encounter for screening for diabetes mellitus
CPT/HCPCS: 36415; 80076; 81596; 82105; 83036; 85025; 85610; 85730

== ENCOUNTER 2025-05-07 06:51 | Day surgery (SDC) | payer OTHER, SELFPAY ==
--- OUTSIDE RECORDS SUMMARY | 2025-04-30 14:18 | XMS_ITS | Encounter Summary ---
Author Organization [facility] Address [address] [place] [address] Phone Care Team Providers Care Performance Improvement Analyst Name Role Phone Carlo Fountain MD Primary Care Provide r Encounter Details Date Type Department Care Team (Late st Contact Info) Description 08/26/2024 Procedure Pass Echo Lab [place] [place] [address] Social History Tobacco Use Types Packs/Day Years [...] Description 05/12/2025 7:45 AM EST Office Visit [facility] [address] [place] [address] [address]rd Floor, [address] [place] [address] Donato Cavazos, DO [address] [address] [email or web address] documented as of this encounter Visit Diagnoses Not on filedocumented in this encounter Care Teams Performance Improvement Analyst Relationship Specialty Start Date End Date aCrlo Fountain MD [address] [place] [id number] PCP - General 08/15/21 documented as of this encounter Additional Source Comments The information contained in this document represents components of the legal health record. It is not the complete legal health record.[facility]
--- OUTSIDE RECORDS SUMMARY | 2025-04-30 14:18 | XMS_ITS | Clinical Summary ---
Author Organization [facility] Address [address] [place] [address] Phone Care Team Providers Care Quality Assurance Intern Name Role Phone Carlo Fountain MD Primary [...] tablet, 0 Refills, Maintenance, 05/28/23 9:26:00 EST, [facility]/pharmacy #[id number], Partial fill upon patient request if the [...] Description 05/12/2025 7:45 AM EST Office Visit [facility] [address] Floor, [address] [place], [place] [phone] Donato Cavazos DO [address] [facility] [address] [place] [phone] [email or web address] [facility] Maintenance Due Date Last Done Comments [...] COMMERCIAL GENERIC COMMERCIAL GENERIC COMMERCIAL NIKKIEJERRY LESTER [id number] GENERIC COMMERCIAL GENERIC COMMERCIAL GENERIC [address] [address] [address] [address] [place] [address] INSURANCE Care Teams Quality Assurance Intern Relationship Specialty Start Date End Date Carlo Fountain MD [address] [place] [id number] PCP - General 08/15/21 Additional Source Comments The information contained in this document represents components of the legal health record. It is not the complete legal health record.[facility]
[2025-05-07] VITALS (12 sets, daily range): BP systolic 126–152; BP diastolic 79–97; PULSE 71–85; RESP 10–17; TEMP 36.4–37.4; O2SAT 95–100; BMI 36.7
--- NOTE | ~2025-05-07 | US_ITS ---
EXAMINATION: US GUIDED LIVER BIOPSY HISTORY: LIVER FIBROSIS, FATTY LIVER COMPARISON: Previous CT of the abdomen and pelvis January 2024 and abdominal ultrasound August 2022 TECHNIQUE: Procedure risks and benefits including bleeding, infection and injury to the liver were discussed with the patient and informed consent was obtained. The patient was positioned in the supine/slight /left decubitus position. The right upper quadrant was prepped and draped in the usual sterile fashion. Skin and soft tissues were anesthetized with 1% lidocaine plain. Using ultrasound guidance and a coaxial system, access to the right lobe of the liver was obtained. 3 20-gauge core biopsies were obtained. There is no complication. Conscious sedation was performed with continuous hemodynamic monitoring by a registered nurse under my direct supervision. Patient received Versed 1.5 mg and fentanyl 75 mcg intravenously during the procedure. Total sedation time was 15 minutes. FINDINGS: Heterogeneous liver echotexture suggestive of hepatocellular disease. No hematoma or ascites seen. US/US biopsy liver IMPRESSION: Ultrasound-guided liver biopsy. Electronically signed by: Esther Flowers MD 05/07/2025 09:30 AM [facility]
== END 2025-05-07 11:32 | disposition home or self-care (01) ==
PROVIDERS: Radiology Diagnostic Radiology; PCP Family Medicine; Visit Provider Internal Medicine
DX: K76.0 Fatty (change of) liver, not elsewhere classified (principal); K74.00 Hepatic fibrosis, unspecified; I31.9 Disease of pericardium, unspecified; Z87.19 Personal history of other diseases of the digestive system; G47.33 Obstructive sleep apnea (adult) (pediatric); Z79.899 Other long term (current) drug therapy; Z88.1 Allergy status to other antibiotic agents; Z90.49 Acquired absence of other specified parts of digestive tract
CPT/HCPCS: 47000; 76942; 86850; 86900; 86901; 88307; 88313; 99152; J2003; J2250; J3010

== ENCOUNTER → 2025-05-07 08:30 | Outpatient (BNV) | payer OTHER, SELFPAY | PROVIDERS: PCP Family Medicine; Visit Provider Radiology Diagnostic Radiology | DX: K74.00 Hepatic fibrosis, unspecified (principal); K76.0 Fatty (change of) liver, not elsewhere classified | CPT/HCPCS: 47000; 76942 ==